=== PATIENT | male | born 1970 | race Caucasian/White ===

== ENCOUNTER → 2018-07-26 08:35 | Outpatient (CLI) | payer OTHER, SELFPAY ==
[2018-07-26 09:08] LABS: Add Manual Diff / Slide Review NO; Basophils Percent Auto 0.7 % (0-2); Eosinophils Percent Auto 1.8 % (2-4); Hematocrit 48.2 % (41-53); Hemoglobin 16.6 g/dL (13.5-17.5); Lymphocytes Percent Auto 27.8 % (25-40); Mean Corpuscular HGB Conc 34.5 % (30-36); Mean Corpuscular Hemoglobin 30.8 PG (26-34); Mean Corpuscular Volume 89.4 fL (80-100); Monocytes Percent Auto 7.7 % (3-14); Neutrophils Absolute Auto 4400 /uL (3000-5900); Platelet Count 212 X10^3/uL (150-400); Red Cell Distribution Width 13.1 % (11.6-14.8)
[2018-07-26 09:24] LABS: Alanine Aminotransferase 45 IU/L (21-72); Albumin 4.3 g/dL (3.5-5.0); Albumin Globulin Ratio 1.8 (1.0-2.8); Alkaline Phosphatase 52 U/L (38-126); Aspartate Aminotransferase 27 IU/L (17-59); Bilirubin Total 0.7 mg/dL (0.2-1.3); Blood Urea Nitrogen 15 mg/dL (9-20); Calcium 9.3 mg/dL (8.4-10.2); Carbon Dioxide 29 mmol/L (22-32); Chloride 105 mmol/L (98-107); Cholesterol 186 mg/dL (140-199); Estimated Glomerular Filt Rate > 60.0 mL/min (>60); Globulin 2.4 g/dL (1.7-4.1); Glucose 112 mg/dL (70-100); HDL Cholesterol 43 mg/dL (40-60); HEMOLYSIS < 15 (0-50); LDL Cholesterol Calculated 103 mg/dL (<100); Sodium 144 mmol/L (137-145); Total Protein 6.7 g/dL (6.3-8.2); Triglycerides 198 mg/dL (35-150)
[2018-07-26 12:47] LABS: Creatinine Urine Random 132.4 mg/dL
[2018-07-26 12:54] LABS: Microalbumi Creatinin Ratio Ur 4.5 ug/mg CR (<30); Microalbumin Urine Random < 0.6 mg/dL (0-1.6)
== END ==
PROVIDERS: PCP Family Medicine; Visit Provider Family Medicine
DX: I10 Essential (primary) hypertension (principal); E66.9 Obesity, unspecified; I47.1 Supraventricular tachycardia
CPT/HCPCS: 36415; 80053; 80061; 82043; 82570; 85025

== ENCOUNTER 2019-03-03 07:48 | Day surgery (SDC) | payer OTHER, SELFPAY ==
--- NOTE | 2019-03-03 | PATH_ITS ---
[facility] Accession Number: [id number] . 01 Material submitted: . PART A: body - POLYP @75 CM PART B: body - POLYP @20 CM . 02 Diagnosis: A. Colon at 75 cm, Polyp: Tubular adenoma. . B. Colon at 20 cm, Polyp: Hyperplastic polyp. MRV/03/04/2019 . 02 Electronically signed: . Scot Wilder MD, PhD, Pathologist NPI- [id number] . 01 Gross description: . (A) Received in formalin, labeled polyp @75, are multiple fragments of tracy-rogers tissue (1.8 x 0.2 x 0.1 cm in aggregate). Filtered and entirely submitted in cassette A1. (B) Received in formalin, labeled polyp @20 cm, are multiple fragments of tracy-rogers tissue (1.0 x 0.5 x 0.1 cm in aggregate). Filtered and entirely submitted in cassette B1. ([id number]) /[facility] . 02 Pathologist provided ICD-10: D12.6, K63.5 . 02 CPT . 256773, [id number] Performed at: 01 [facility] [address], [place], [place] [id number] MD Elton Awan MD Phone: [phone] Performed at: 02 [facility] [address] [place], [place] [id number] MD Crissy Rosales MD Phone: [phone]
[2019-03-03 08:11] VITALS: BMI 35.6
[2019-03-03 08:14] VITALS: BP 140/88; PULSE 98; RESP 18; TEMP 36.4; O2SAT 97
[2019-03-03] MEDS: SODIUM CHLORIDE 0.9% 1,000 ML 200 ML IV (08:22)
--- NOTE | 2019-03-03 09:34 | PM.HP.1 ---
History of Present Illness Date Patient Seen: 03/03/19 Time Patient Seen: 09:34 Chief complaint: [id number] Narrative: Patient is a gentleman whose turned 49 he is here for screening colonoscopy. This is his 1st exam. No family history. Patient History Medical History Essential hypertension (Chronic) SVT (supraventricular tachycardia) (Chronic) Surgical History S/P wisdom tooth extraction (Acute) Family History Father Diabetes mellitus Mother Diabetes mellitus Social History marital status: household members: spouse occupational status: employed ([employer] for [employer]) Smoking Status: Current every day smoker (20 year smoker 1/2 ppd) alcohol intake: current (rare) substance use type: does not use Family & Social History Family History Father Diabetes mellitus Mother Diabetes mellitus Social History: household members spouse Tobacco & Substance use: Smoking Status Current every day smoker alcohol intake current Meds Home Medications Medication Instructions Recorded Confirmed Type cholecalciferol (vitamin D3) 5,000 5,000 unit PO DAILY 02/03/18 03/03/19 History unit capsule irbesartan 300 1 tab PO DAILY #90 tab 09/19/18 03/03/19 Rx mg-hydrochlorothiazide 12.5 mg tablet metoprolol succinate ER 25 mg 12.5 mg PO DAILY tab 11/26/18 03/03/19 History tablet,extended release 24 hr metoprolol tartrate 25 mg tablet 25 mg PO DAILY PRN #60 tab 11/26/18 03/03/19 Rx Allergies Allergy/AdvReac Type Severity Reaction Status Date / Time azithromycin [From Zithromax] Allergy Intermediate Rash Verified 03/03/19 08:18 doxycycline Allergy Intermediate Rash Verified 03/03/19 08:18 Penicillins Allergy Intermediate Rash Verified 03/03/19 08:18 Review of Systems Review of Systems All systems reviewed & are unremarkable except as noted in HPI and below Exam Vital Signs (past 8 hours): - 03/03/19 08:14 Temperature 97.5 F L Pulse Rate 98 H Respiratory Rate 18 Blood Pressure 140/88 Pulse Oximetry 97 Oxygen Delivery Method Room Air Narrative Exam Narrative: Pleasant cooperative patient no apparent distress. Lungs are clear to auscultation. No rales or rhonchi. Heart regular rate and rhythm no murmur gallop. Abdomen is soft nontender without mass. No obvious hernias. Patient is alert and oriented x3. Assessment & Plan Assessment & Plan narrative: The patient for a screening colonoscopy. I have discussed the procedure with them. Risks of bleeding, perforation which would necessitate major operation, failure to find remove all lesions, the potential tattoo were all discussed. All questions were answered. They wished to proceed.
--- NOTE | 2019-03-03 09:35 | PM.PREOP ---
Pre-operative Note Interval Note History & Physical reviewed/Exam performed by Physician: Yes Changes to H&P: No ASA Class (for procedural sedation): II
--- NOTE | 2019-03-03 09:55 | SUR.OPER ---
used alligator biopsy [facility], [id number]
[2019-03-03] MEDS: MIDAZOLAM 5 MG/5 ML VIAL IV (10:01)
[2019-03-03] MEDS: fentaNYL 250 MCG/5 ML INJ IV (10:01)
--- NOTE | 2019-03-03 10:08 | PM.OP.ENDO ---
Operative Date/Time/Diagnoses Date of procedure: 03/03/19 Time of procedure: 10:08 Pre-op diagnosis: Screening exam. This is 1st colonoscopy. Post-op diagnosis: same (Two small polyps. Castanon colonic diverticulosis.) Procedure & Clinicians Study performed: Colonoscopy with cold biopsy Same procedure as scheduled: Yes Indications: Screening Surgeon: Dalton Johns Procedure Notes SCOAP/Timeout: Performed Procedure in detail: The patient was placed in the left lateral decubitus position and underwent IV sedation directed by the surgeon consisting of fentanyl and Versed. Digital exam was remarkable vein increased sphincter tone. I really could not feel his prostate well due to his body habitus.. The scope was inserted in I retroflexed at this point. The anus had a normal appearance. The scope was then advanced through the rectum into the sigmoid, descending, transverse, and ascending colon. I noted diverticulosis scattered but few in number throughout the colon.. The cecum was reached identified by the ileocecal valve and the appendiceal opening. The scope was gradually brought out. Polyps were found at 75 cm and 20 cm from the anal verge. These were biopsied and repeatedly and appeared to be completely removed.. The scope was removed and the patient tolerated the procedure well. The prep was very good. Scope withdrawal time: 24 minutes Sedation minutes: 28 Findings: diverticulosis and polyp Specimen(s): other (Polyp) Complications: none Recommendations: Colonscopy in 5 years Follow up: as needed Disposition: PACU
[2019-03-03 10:11] VITALS: BP 124/84; PULSE 91; RESP 13; TEMP 36.6; O2SAT 97
[2019-03-03 10:21] VITALS: BP 110/73; PULSE 87; RESP 12; TEMP 36.3; O2SAT 97
== END 2019-03-03 10:37 | disposition home or self-care (01) ==
PROVIDERS: PCP Family Medicine; Visit Provider Specialist
PROC: 0DJD8ZZ Inspection of Lower Intestinal Tract, Via Natural or Artificial Opening Endoscopic (ICD-10-PCS; CPT 45378; principal; 2019-03-03 08:45)
DX: Z12.11 Encounter for screening for malignant neoplasm of colon (principal); K57.30 Diverticulosis of large intestine without perforation or abscess without bleeding; D12.6 Benign neoplasm of colon, unspecified
CPT/HCPCS: 45380; 99152; J2250; J3010

== ENCOUNTER 2019-10-01 06:02 | Emergency (ER) | payer OTHER, SELFPAY ==
[2019-10-01] VITALS (13 sets, daily range): BP systolic 124–150; BP diastolic 29–84; PULSE 84–170; RESP 13–25; TEMP 36.8; O2SAT 94–97; BMI 36.6
--- NOTE | 2019-10-01 06:23 | ED_ITS ---
HPI - Nausea/Vomiting/Diarrhea <Ryan Raúl, DO - Last Filed: 10/01/19 23:31> General Chief complaint: Nausea/Vomiting/Diarrhea Stated complaint: DIARRHEA VOMITING STATES IN SVT Time Seen by Provider: 10/01/19 06:02 Source: patient Mode of arrival: Ambulatory Limitations: no limitations History of Present Illness HPI Narrative: 49-year-old male nonsmoker with history of SVT presents to the emergency department this morning with a chief complaint of rapid heart rate and palpitations since last night. He does have a history of SVT and takes metoprolol daily for this. He has never been cardioverted and has never had adenosine. Additionally he states he has had nausea vomiting and multiple episodes of diarrhea since last night. He denies any sick contacts, use of antibiotics, exposure to bad food or international travel. He is not dizzy, weak or lightheaded. He denies chest pain or shortness of breath. He has had no fever chills and denies any runny nose, sore throat or cough. He did try vagal maneuvers at home and was unsuccessful MD complaint: nausea, vomiting and diarrhea Onset (ago): hour(s) Description of Vomiting: food contents Description of Diarrhea: watery Associated Abdominal Pain: No Associated symptoms: nausea/vomiting and other Related Data Home Medications Medication Instructions Recorded Confirmed cholecalciferol (vitamin D3) 125 5,000 unit PO DAILY 02/03/18 06/29/19 mcg (5,000 unit) capsule metoprolol succinate 25 mg 12.5 mg PO DAILY tab 11/26/18 06/29/19 tablet,extended release 24 hr Previous Rx's Medication Instructions Recorded metoprolol tartrate 25 mg tablet 25 mg PO DAILY PRN #60 tab 06/29/19 irbesartan 300 1 tab PO DAILY #90 tab 09/16/19 mg-hydrochlorothiazide 12.5 mg tablet loperamide 2 mg PO Q2-4H PRN #14 cap 10/01/19 ondansetron 4 mg PO TID-QID PRN #10 tab 10/01/19 ondansetron HCl [Zofran] 4 mg PO Q6H PRN #10 tab 10/01/19 Allergies Allergy/AdvReac Type Severity Reaction Status Date / Time azithromycin [From Zithromax] Allergy Intermediate Rash Verified 10/01/19 07:41 doxycycline Allergy Intermediate Rash Verified 10/01/19 07:41 Penicillins Allergy Intermediate Rash Verified 10/01/19 07:41 Review of Systems <Ryan Olsen DO - Last Filed: 10/01/19 23:31> Constitutional Constitutional: Denies chills, Denies fatigue, Denies fever(s), Denies frequent falls, Denies lethargy and Denies weakness Eyes Eyes: Denies change in vision, Denies eye discharge, Denies irritation and Denies loss of vision ENT Ears, Nose, Mouth, and Throat: Denies change in voice, Denies dizziness, Denies neck pain, Denies sore throat and Denies throat swelling Cardiovascular Cardiovascular: Denies chest pain, Reports irregular heart rhythm, Denies lightheadedness, Reports palpitations, Denies dyspnea, Denies dyspnea on exertion and Denies orthopnea Respiratory Respiratory: Denies cough, Denies dyspnea, Denies dyspnea on exertion and Denies wheezing Gastrointestinal Gastrointestinal: Denies abdominal pain, Denies change in bowel habits, Denies diarrhea, Denies nausea and Denies vomiting Genitourinary Genitourinary: Denies hematuria, Denies flank pain, Denies urinary incontinence and Denies urinary urgency Musculoskeletal Musculoskeletal: Denies back pain, Denies muscle weakness, Denies neck pain, Denies numbness and Denies tingling Integumentary/Breasts Skin/Breast: Denies pruritus, Denies erythema, Denies rash and Denies wounds Neurologic Neurologic: Denies behavioral changes, Denies confusion, Denies dizziness, Denies frequent falls, Denies loss of vision, Denies numbness, Denies tingling and Denies weakness Psychiatric Psychiatric: Denies anxiety, Denies behavioral changes, Denies confusion, Denies depression, Denies homicidal ideation and Denies suicidal ideation Endocrine Endocrine: Denies fatigue, Denies flushing and Reports palpitations Hematologic/Lymphatic Hematologic/Lymphatic: Denies easy bruising Allergic/Immunologic Allergic/Immunologic: Denies urticaria, Denies throat swelling and Denies whee zing Patient History <Ryan Olsen DO - Last Filed: 10/01/19 23:31> Medical History Essential hypertension (Chronic) SVT (supraventricular tachycardia) (Chronic) Surgical History S/P wisdom tooth extraction (Acute) Family History Father Diabetes mellitus Mother Diabetes mellitus Social History marital status: household members: spouse occupational status: employed ([employer] for [employer]) Smoking Status: Former smoker (20 year smoker 1/2 ppd, quit 2019!!) alcohol intake: current (rare) substance use type: does not use Smoking Status: Former smoker (20 year smoker 1/2 ppd, quit 2019!!) Exam <Ryan Olsen DO - Last Filed: 10/01/19 23:31> Narrative Exam Narrative: GENERAL: [49] year old patient appears stated age. Obese, well- developed patient, in mild distress. HEAD: Atraumatic. Normocephalic. EYES: Pupils equal round and reactive. Extraocular motions intact. No scleral icterus. No injection or drainage. ENT: Nose without bleeding, purulent drainage. Throat without erythema, tonsillar hypertrophy or exudate. Airway patent. NECK: Trachea midline. Non tender CARDIOVASCULAR: Tachycardic and regular rhythm without murmurs, gallops, or rubs. RESPIRATORY: Clear to auscultation. Breath sounds equal bilaterally. No wheezes, rales, or rhonchi. GASTROINTESTINAL: Abdomen soft, non-tender, nondistended. EXTREMITIES: No edema or joint tenderness. BACK: Nontender without deformity or crepitance. No flank tenderness. NEURO: AOx3. SKIN: No rash or erythema of visible areas Initial Vital Signs Initial Vital Signs: Vital Signs Temperature 98.2 F 10/01/19 06:21 Pulse Rate 170 H 10/01/19 06:21 Respiratory Rate 16 10/01/19 06:21 Blood Pressure 127/29 L 10/01/19 06:21 Pulse Oximetry 97 10/01/19 06:21 <Pramod Leiva MD - Last Filed: 10/02/19 07:25> Initial Vital Signs Initial Vital Signs: Vital Signs Temperature 98.2 F 10/01/19 06:21 Pulse Rate 170 H 10/01/19 06:21 Respiratory Rate 16 10/01/19 06:21 Blood Pressure 127/29 L 10/01/19 06:21 Pulse Oximetry 97 10/01/19 06:21 Course <Ryan Olsen DO - Last Filed: 10/01/19 23:31> Course Course Narrative: Attempted to perform modified Valsalva maneuver and patient did have a brief conversion from SVT to normal sinus rhythm in the 70s but quickly returned. We placed an IV and patient stated he had to use the restroom. He was able to produce a liquidy stool which has been sent for culture. Upon return to the room he is in a sinus tachycardia at 105-110 and reports some improvement in symptoms Orders Ordered: Discontinued Medications Adenosine (Adenocard) 6 mg IV NOW ONE Stop: 10/01/19 06:22 Last Admin: 10/01/19 10:35 Dose: Not Given Documented by: MEISENB Diltiazem HCl (Cardizem) 10 mg IV NOW ONE Stop: 10/01/19 09:43 Last Admin: 10/01/19 10:35 Dose: 10 mg Documented by: MEISENB Sodium Chloride (Normal Saline 0.9%) 1,000 mls @ 1,000 mls/hr IV BOLUS ONE Stop: 10/01/19 07:25 Last Infusion: 10/01/19 08:46 Dose: 0 mls/hr Documented by: Admin: 10/01/19 06:25 Dose: 1,000 mls/hr Documented by: MMCFARL Sodium Chloride (Normal Saline 0.9%) 1,000 mls @ 1,000 mls/hr IV BOLUS ONE Stop: 10/01/19 07:44 Last Admin: 10/01/19 07:47 Dose: 1,000 mls/hr Documented by: MEISENB Sodium Chloride (Normal Saline 0.9%) 1,000 mls @ 150 mls/hr IV CONT ARLENE Last Admin: 10/01/19 10:35 Dose: Not Given Documented by: MEISENB Metoprolol Succinate (Toprol Xl) 25 mg PO NOW ONE Stop: 10/01/19 10:06 Last Admin: 10/01/19 10:34 Dose: 25 mg Documented by: MEISENB Vital Signs Vital signs: Vital Signs - 8 hr 10/01/19 06:21 10/01/19 06:38 10/01/19 06:59 Temperature 98.2 F Pulse Rate 170 H 106 H 101 H Pulse Rate [Orthostatic Lying] Pulse Rate [Orthostatic Sitting] Pulse Rate [Orthostatic Standing] Respiratory Rate 16 21 24 Blood Pressure 127/29 L Blood Pressure [Orthostatic Lying] Blood Pressure [Orthostatic Sitting] Blood Pressure [Orthostatic Standing] Blood Pressure [Right Arm] 129/80 135/77 Pulse Oximetry 97 94 95 10/01/19 07:39 10/01/19 08:00 10/01/19 08:30 Temperature Pulse Rate 98 H 88 89 Pulse Rate [Orthostatic Lying] Pulse Rate [Orthostatic Sitting] Pulse Rate [Orthostatic Standing] Respiratory Rate 16 16 16 Blood Pressure Blood Pressure [Orthostatic Lying] Blood Pressure [Orthostatic Sitting] Blood Pressure [Orthostatic Standing] Blood Pressure [Right Arm] 128/79 126/70 127/74 Pulse Oximetry 96 97 97 10/01/19 08:54 10/01/19 08:55 10/01/19 09:00 Temperature Pulse Rate 86 88 Pulse Rate [Orthostatic Lying] 86 Pulse Rate [Orthostatic Sitting] 94 H Pulse Rate [Orthostatic Standing] 106 H Respiratory Rate 16 16 Blood Pressure Blood Pressure [Orthostatic Lying] 127/64 Blood Pressure [Orthostatic Sitting] 127/80 Blood Pressure [Orthostatic Standing] 124/77 Blood Pressure [Right Arm] 131/68 127/64 Pulse Oximetry 96 97 10/01/19 09:30 10/01/19 09:33 Temperature Pulse Rate 84 132 H Pulse Rate [Orthostatic Lying] Pulse Rate [Orthostatic Sitting] Pulse Rate [Orthostatic Standing] Respiratory Rate 16 13 Blood Pressure Blood Pressure [Orthostatic Lying] Blood Pressure [Orthostatic Sitting] Blood Pressure [Orthostatic Standing] Blood Pressure [Right Arm] 147/84 H 147/84 H Pulse Oximetry 96 97 <Pramod Leiva MD - Last Filed: 10/02/19 07:25> Course Course Narrative: 0814: TRANSFER OF CARE ADDENDUM: Report was received from Dr. Olsen. The patient's stool analysis was negative. His white blood count was 1 4.0, hemoglobin 18.9, hematocrit 53.9, which questionably may be secondary to hemoconcentration secondary to being dehydrated or polycythemia. The patient admits to smoking cigarettes. The patient states that he developed diarrhea last night around 9:00 a.m. and that it was profuse multiple bowel movements. He did not notice any blood or melena in it. The patient started vomiting and became diaphoretic at which time he came into the emergency department to be evaluated. At 6:13 a.m. the patient's heart rate was 101 blood pressure 135/77 oxygen saturation 95% FiO2 21%. At the present time his heart rate is 85 blood pressure is 125/70. His EKG obtained on October 01 at 06:1 3:15 a.m. revealed a ventricular rate of 134. I do not really see any P-waves in the EKG and it does look like it could very well be atrial fibrillation with a rapid ventricular rate. QTC is 392 milliseconds which is normal axis is normal. I will repeat his EKG at this time because on the monitor his heart rate looks regular. We will also check orthostatic vital signs an ambulate the patient and see how he does. The patient would like to go home. At this time his heart is regular rate and rhythm without a murmur distant. Lungs are clear and symmetrical. Abdomen is soft and nontender. The patient is awake alert and oriented answering questions appropriately. 0905 laying down the patient's heart rate is 86 with a blood pressure of 127/74. Sitting the patient's heart rate is 94 with blood pressure of 127/80. Standing the patient's blood pressure is 124 over of 77 with a heart rate of 106. The patient states that he feels 200% better. His EKG obtained on October 01 at 08:3 2:06 a.m. reveals a normal sinus rhythm with a RI interval of 181 QRS is slightly prolonged at 107 milliseconds. QTC is normal at 418 milliseconds. [place] is normal at 7. The patient has a stroke very small R-wave in III otherwise it looks like a QS confirmation. T-waves are upright. There are no appreciable inverted T-waves or Q-waves appreciated. ST segments are nonspecific. The plan is to discharge the patient home as soon as his IV is complete. He was advised to drink 3 L of fluid per day and to rest today and take his medications as prescribed. He will be given Zofran for nausea and vomiting and loperamide for his diarrhea. He was advised to follow-up with his primary care physician in 2 4-48 hours if not improved. If he develops rapid heart rate dizziness passing out increased shortness of breath or chest pain he needs to return to the emergency department. 0941 the patient was in the process of being discharged when he redeveloped SVT with his heart rate going up to 155. Repeat EKG reveals that he has atrial fibrillation with rapid ventricular rate of 144. His QRS who is prolonged at 112 milliseconds. QTC is normal at 401 milliseconds axis is normal. The patient has a QS wave in lead III and AVF without inverted T-waves. There is no acute diagnostic ST segment changes. I will discuss the patient with his primary care physician in believe the patient will be admitted for paroxysmal atrial fibrillation. 1000 I discussed the patient with Dr. Corona for Dr. Carr, [facility] who states that the patient can go home. He is to increase his metoprolol to 25 mg per day and take aspirin and call and make an office appointment. His Luisito score is 1 and does not need to be anticoagulated. The patient is back in normal sinus rhythm with a ventricular rate of 85. Orders Ordered: Discontinued Medications Adenosine (Adenocard) 6 mg IV NOW ONE Stop: 10/01/19 06:22 Last Admin: 10/01/19 10:35 Dose: Not Given Documented by: MEISENB Diltiazem HCl (Cardizem) 10 mg IV NOW ONE Stop: 10/01/19 09:43 Last Admin: 10/01/19 10:35 Dose: 10 mg Documented by: MEISENB Sodium Chloride (Normal Saline 0.9%) 1,000 mls @ 1,000 mls/hr IV BOLUS ONE Stop: 10/01/19 07:25 Last Infusion: 10/01/19 08:46 Dose: 0 mls/hr Documented by: Admin: 10/01/19 06:25 Dose: 1,000 mls/hr Documented by: MMCFARL Sodium Chloride (Normal Saline 0.9%) 1,000 mls @ 1,000 mls/hr IV BOLUS ONE Stop: 10/01/19 07:44 Last Admin: 10/01/19 07:47 Dose: 1,000 mls/hr Documented by: MEISENB Sodium Chloride (Normal Saline 0.9%) 1,000 mls @ 150 mls/hr IV CONT ARLENE Last Admin: 10/01/19 10:35 Dose: Not Given Documented by: MEISENB Metoprolol Succinate (Toprol Xl) 25 mg PO NOW ONE Stop: 10/01/19 10:06 Last Admin: 10/01/19 10:34 Dose: 25 mg Documented by: MEISENRose Marie Vital Signs Vital signs: Vital Signs - 8 hr 10/01/19 06:21 10/01/19 06:38 10/01/19 06:59 Temperature 98.2 F Pulse Rate 170 H 106 H 101 H Pulse Rate [Orthostatic Lying] Pulse Rate [Orthostatic Sitting] Pulse Rate [Orthostatic Standing] Respiratory Rate 16 21 24 Blood Pressure 127/29 L Blood Pressure [Orthostatic Lying] Blood Pressure [Orthostatic Sitting] Blood Pressure [Orthostatic Standing] Blood Pressure [Right Arm] 129/80 135/77 Pulse Oximetry 97 94 95 10/01/19 07:39 10/01/19 08:00 10/01/19 08:30 Temperature Pulse Rate 98 H 88 89 Pulse Rate [Orthostatic Lying] Pulse Rate [Orthostatic Sitting] Pulse Rate [Orthostatic Standing] Respiratory Rate 16 16 16 Blood Pressure Blood Pressure [Orthostatic Lying] Blood Pressure [Orthostatic Sitting] Blood Pressure [Orthostatic Standing] Blood Pressure [Right Arm] 128/79 126/70 127/74 Pulse Oximetry 96 97 97 10/01/19 08:54 10/01/19 08:55 10/01/19 09:00 Temperature Pulse Rate 86 88 Pulse Rate [Orthostatic Lying] 86 Pulse Rate [Orthostatic Sitting] 94 H Pulse Rate [Orthostatic Standing] 106 H Respiratory Rate 16 16 Blood Pressure Blood Pressure [Orthostatic Lying] 127/64 Blood Pressure [Orthostatic Sitting] 127/80 Blood Pressure [Orthostatic Standing] 124/77 Blood Pressure [Right Arm] 131/68 127/64 Pulse Oximetry 96 97 10/01/19 09:30 10/01/19 09:33 Temperature Pulse Rate 84 132 H Pulse Rate [Orthostatic Lying] Pulse Rate [Orthostatic Sitting] Pulse Rate [Orthostatic Standing] Respiratory Rate 16 13 Blood Pressure Blood Pressure [Orthostatic Lying] Blood Pressure [Orthostatic Sitting] Blood Pressure [Orthostatic Standing] Blood Pressure [Right Arm] 147/84 H 147/84 H Pulse Oximetry 96 97 MDM - Nausea/Vomiting/Diarrhea <Ryan Olsen DO - Last Filed: 10/01/19 23:31> Lab Data Result diagrams: 10/01/19 06:10 10/01/19 06:10 Labs: Lab Results 10/01/19 10/01/19 10/01/19 Range/Units 06:10 06:10 06:30 WBC 14.0 H (4.5-11.0) X10^3/uL RBC 6.07 H (4.5-5.9) X10^6/uL Hgb 18.9 H (13.5-17.5) g/dL Hct 53.9 H (41-53) % MCV 88.8 (80-100) fL MCH 31.2 (26-34) PG MCHC 35.1 (30-36) % RDW 13.2 (11.6-14.8) % Plt Count 241 (150-400) X10^3/uL Neut % (Auto) 85.6 H (50-75) % Lymph % (Auto) 7.2 L (25-40) % [place] % (Auto) 5.2 (3-14) % Eos % (Auto) 1.4 L (2-4) % Baso % (Auto) 0.6 (0-2) % Neut # (Auto) 31542 H (6188-6622) /uL Lymph # (Auto) 1000 L (2476-9276) /uL [place] # (Auto) 700 (0-900) /uL Eos # (Auto) 200 (0-450) /uL Baso # (Auto) 100 (0-100) /uL Sodium 142 (137-145) mmol/L Potassium 4.0 (3.4-5.1) mmol/L Chloride 108 H (98-107) mmol/L Carbon Dioxide 21 L (22-32) mmol/L BUN 21 H (9-20) mg/dL Creatinine 1.00 (0.66-1.25) mg/dL Estimated GFR > 60.0 (>60) mL/min BUN/Creatinine Ratio 21.0 (6-22) Glucose 153 H (70-100) mg/dL Calcium 9.9 (8.4-10.2) mg/dL Urine RBC (0-5/HPF) Urine WBC (0-5/HPF) Amorphous Sediment Urine Bacteria (None) Urine Mucus (Negative) Ur Culture Indicated? Stl C. cayetanensis PCR Not detected (Not Detect) Stool Rotavirus (PCR) Not detected (Not Detect) Stool Adenovirus (PCR) Not detected (Not Detect) Stool Astrovirus (PCR) Not detected (Not Detect) Stool Cryptosporidium PCR Not detected (Not Detect) Stl E.coli Shiga Tox PCR Not detected (Not Detect) St Sh/Enteroin Ecoli PCR Not detected (Not Detect) Stool E coli O157 PCR Not detected (Not Detect) Stl Enterotoxigenic E PCR Not detected (Not Detect) Stool EPEC (PCR) Not detected (Not Detect) Stl E. histolytica PCR Not detected (Not Detect) Stool Giardia Lamblia PCR Not detected (Not Detect) Stool Sapovirus (PCR) Not detected (Not Detect) Stl P. shigelloides PCR Not detected (Not Detect) St Y.enterocolitica PCR Not detected (Not Detect) Stool Vibrio (PCR) Not detected (Not Detect) Stl Vibrio cholerae PCR Not detected (Not Detect) Stl Enteroaggr Ecoli PCR Not detected (Not Detect) Stl Norovirus GI/GII PCR Not detected (Not Detect) Campylobacter (PCR) Not detected (Not Detect) C. difficile Tox (PCR) Not detected (Not Detect) Salmonella (PCR) Not detected (Not Detect) 10/01/19 Range/Units 07:43 WBC (4.5-11.0) X10^3/uL RBC (4.5-5.9) X10^6/uL Hgb (13.5-17.5) g/dL Hct (41-53) % MCV (80-100) fL MCH (26-34) PG MCHC (30-36) % RDW (11.6-14.8) % Plt Count (150-400) X10^3/uL Neut % (Auto) (50-75) % Lymph % (Auto) (25-40) % [place] % (Auto) (3-14) % Eos % (Auto) (2-4) % Baso % (Auto) (0-2) % Neut # (Auto) (9518-9827) /uL Lymph # (Auto) (2437-5528) /uL [place] # (Auto) (0-900) /uL Eos # (Auto) (0-450) /uL Baso # (Auto) (0-100) /uL Sodium (137-145) mmol/L Potassium (3.4-5.1) mmol/L Chloride (98-107) mmol/L Carbon Dioxide (22-32) mmol/L BUN (9-20) mg/dL Creatinine (0.66-1.25) mg/dL Estimated GFR (>60) mL/min BUN/Creatinine Ratio (6-22) Glucose (70-100) mg/dL Calcium (8.4-10.2) mg/dL Urine RBC None seen (0-5/HPF) Urine WBC 1-5/hpf (0-5/HPF) Amorphous Sediment 1+ Urine Bacteria Occasional (0-1) (None) Urine Mucus 3+ H (Negative) Ur Culture Indicated? Specimen cultured Stl C. cayetanensis PCR (Not Detect) Stool Rotavirus (PCR) (Not Detect) Stool Adenovirus (PCR) (Not Detect) Stool Astrovirus (PCR) (Not Detect) Stool Cryptosporidium PCR (Not Detect) Stl E.coli Shiga Tox PCR (Not Detect) St Sh/Enteroin Ecoli PCR (Not Detect) Stool E coli O157 PCR (Not Detect) Stl Enterotoxigenic E PCR (Not Detect) Stool EPEC (PCR) (Not Detect) Stl E. histolytica PCR (Not Detect) Stool Giardia Lamblia PCR (Not Detect) Stool Sapovirus (PCR) (Not Detect) Stl P. shigelloides PCR (Not Detect) St Y.enterocolitica PCR (Not Detect) Stool Vibrio (PCR) (Not Detect) Stl Vibrio cholerae PCR (Not Detect) Stl Enteroaggr Ecoli PCR (Not Detect) Stl Norovirus GI/GII PCR (Not Detect) Campylobacter (PCR) (Not Detect) C. difficile Tox (PCR) (Not Detect) Salmonella (PCR) (Not Detect) Urine Dip Bedside Urine Glucose Negative Bedside Urine Bilirubin + 1 Bedside Urine Ketone +/- 5 Urine Specific [place] 1.025 Bedside Urine Occult Blood - Negative Bedside Urine pH 6.0 Bedside Urine Protein + 30 Bedside Urine Urobilinogen - Negative Bedside Urine Nitrite - Negative Bedside Urine Leukocytes +/- 15 Esterase <Pramod Leiva MD - Last Filed: 10/02/19 07:25> Medical Records Attestation: I reviewed the patient's medical records. Lab Data Attestation: I reviewed the patient's lab results. Labs: Lab Results 10/01/19 10/01/19 10/01/19 Range/Units 06:10 06:10 06:30 WBC 14.0 H (4.5-11.0) X10^3/uL RBC 6.07 H (4.5-5.9) X10^6/uL Hgb 18.9 H (13.5-17.5) g/dL Hct 53.9 H (41-53) % MCV 88.8 (80-100) fL MCH 31.2 (26-34) PG MCHC 35.1 (30-36) % RDW 13.2 (11.6-14.8) % Plt Count 241 (150-400) X10^3/uL Neut % (Auto) 85.6 H (50-75) % Lymph % (Auto) 7.2 L (25-40) % [place] % (Auto) 5.2 (3-14) % Eos % (Auto) 1.4 L (2-4) % Baso % (Auto) 0.6 (0-2) % Neut # (Auto) 68940 H (2384-1634) /uL Lymph # (Auto) 1000 L (1241-7607) /uL [place] # (Auto) 700 (0-900) /uL Eos # (Auto) 200 (0-450) /uL Baso # (Auto) 100 (0-100) /uL Sodium 142 (137-145) mmol/L Potassium 4.0 (3.4-5.1) mmol/L Chloride 108 H (98-107) mmol/L Carbon Dioxide 21 L (22-32) mmol/L BUN 21 H (9-20) mg/dL Creatinine 1.00 (0.66-1.25) mg/dL Estimated GFR > 60.0 (>60) mL/min BUN/Creatinine Ratio 21.0 (6-22) Glucose 153 H (70-100) mg/dL Calcium 9.9 (8.4-10.2) mg/dL Urine RBC (0-5/HPF) Urine WBC (0-5/HPF) Amorphous Sediment Urine Bacteria (None) Urine Mucus (Negative) Ur Culture Indicated? Stl C. cayetanensis PCR Not detected (Not Detect) Stool Rotavirus (PCR) Not detected (Not Detect) Stool Adenovirus (PCR) Not detected (Not Detect) Stool Astrovirus (PCR) Not detected (Not Detect) Stool Cryptosporidium PCR Not detected (Not Detect) Stl E.coli Shiga Tox PCR Not detected (Not Detect) St Sh/Enteroin Ecoli PCR Not detected (Not Detect) Stool E coli O157 PCR Not detected (Not Detect) Stl Enterotoxigenic E PCR Not detected (Not Detect) Stool EPEC (PCR) Not detected (Not Detect) Stl E. histolytica PCR Not detected (Not Detect) Stool Giardia Lamblia PCR Not detected (Not Detect) Stool Sapovirus (PCR) Not detected (Not Detect) Stl P. shigelloides PCR Not detected (Not Detect) St Y.enterocolitica PCR Not detected (Not Detect) Stool Vibrio (PCR) Not detected (Not Detect) Stl Vibrio cholerae PCR Not detected (Not Detect) Stl Enteroaggr Ecoli PCR Not detected (Not Detect) Stl Norovirus GI/GII PCR Not detected (Not Detect) Campylobacter (PCR) Not detected (Not Detect) C. difficile Tox (PCR) Not detected (Not Detect) Salmonella (PCR) Not detected (Not Detect) 10/01/19 Range/Units 07:43 WBC (4.5-11.0) X10^3/uL RBC (4.5-5.9) X10^6/uL Hgb (13.5-17.5) g/dL Hct (41-53) % MCV (80-100) fL MCH (26-34) PG MCHC (30-36) % RDW (11.6-14.8) % Plt Count (150-400) X10^3/uL Neut % (Auto) (50-75) % Lymph % (Auto) (25-40) % [place] % (Auto) (3-14) % Eos % (Auto) (2-4) % Baso % (Auto) (0-2) % Neut # (Auto) (8176-5963) /uL Lymph # (Auto) (5870-2991) /uL [place] # (Auto) (0-900) /uL Eos # (Auto) (0-450) /uL Baso # (Auto) (0-100) /uL Sodium (137-145) mmol/L Potassium (3.4-5.1) mmol/L Chloride (98-107) mmol/L Carbon Dioxide (22-32) mmol/L BUN (9-20) mg/dL Creatinine (0.66-1.25) mg/dL Estimated GFR (>60) mL/min BUN/Creatinine Ratio (6-22) Glucose (70-100) mg/dL Calcium (8.4-10.2) mg/dL Urine RBC None seen (0-5/HPF) Urine WBC 1-5/hpf (0-5/HPF) Amorphous Sediment 1+ Urine Bacteria Occasional (0-1) (None) Urine Mucus 3+ H (Negative) Ur Culture Indicated? Specimen cultured Stl C. cayetanensis PCR (Not Detect) Stool Rotavirus (PCR) (Not Detect) Stool Adenovirus (PCR) (Not Detect) Stool Astrovirus (PCR) (Not Detect) Stool Cryptosporidium PCR (Not Detect) Stl E.coli Shiga Tox PCR (Not Detect) St Sh/Enteroin Ecoli PCR (Not Detect) Stool E coli O157 PCR (Not Detect) Stl Enterotoxigenic E PCR (Not Detect) Stool EPEC (PCR) (Not Detect) Stl E. histolytica PCR (Not Detect) Stool Giardia Lamblia PCR (Not Detect) Stool Sapovirus (PCR) (Not Detect) Stl P. shigelloides PCR (Not Detect) St Y.enterocolitica PCR (Not Detect) Stool Vibrio (PCR) (Not Detect) Stl Vibrio cholerae PCR (Not Detect) Stl Enteroaggr Ecoli PCR (Not Detect) Stl Norovirus GI/GII PCR (Not Detect) Campylobacter (PCR) (Not Detect) C. difficile Tox (PCR) (Not Detect) Salmonella (PCR) (Not Detect) Urine Dip Bedside Urine Glucose Negative Bedside Urine Bilirubin + 1 Bedside Urine Ketone +/- 5 Urine Specific [place] 1.025 Bedside Urine Occult Blood - Negative Bedside Urine pH 6.0 Bedside Urine Protein + 30 Bedside Urine Urobilinogen - Negative Bedside Urine Nitrite - Negative Bedside Urine Leukocytes +/- 15 Esterase ECG Data Attestation: I personally reviewed and interpreted this ECG as follows: Interpretation: See Transfer of Care Addendum with EKG interpretation. Discharge Plan Departure Patient Disposition: Home Clinical Impression: Supraventricular tachycardia, Nausea, Vomiting, and Diarrhea, Dehydration, High mean corpuscular hemoglobin concentration (MCHC), Atrial fibrillation with rapid ventricular response Discharge Date/Time: 10/01/19 10:42 Instructions: DI for Dehydration -- Adult, DI for Paroxysmal Supraventricular T achycardia, DI for Vomiting -- Adult Activity Restrictions/Additional Instructions: *You have been diagnosed with [nausea, vomiting, diarrhea an SVT] *What to do: *Take medications as directed *Follow up with your primary care provider in 2-3 days, call for an appointment. Let them know you were seen in the Emergency Department and that we ask that you be seen in follow up *Return to ER if you should have any new, worsening or concerning symptoms Drink 2-3 L of fluid per day. Increase your metoprolol to 25 mg per day double the dose. Take were 325 mg of aspirin per day and call Dr. Menchaca's office and schedule a follow-up appointment with [facility]. Prescriptions: New ondansetron 4 mg tablet,disintegrating 4 mg PO TID-QID PRN (Reason: nausea and vomiting) Qty: 10 RF: 0 loperamide 2 mg capsule 2 mg PO Q2-4H PRN (Reason: loose stool) Qty: 14 RF: 0 ondansetron HCl [Zofran] 4 mg tablet 4 mg PO Q6H PRN (Reason: nausea and vomiting) Qty: 10 RF: 0 No Action metoprolol tartrate 25 mg tablet 25 mg PO DAILY PRN (Reason: SVT) Qty: 60 RF: 2 irbesartan-hydrochlorothiazide 300-12.5 mg tablet 1 tab PO DAILY Qty: 90 RF: 3 cholecalciferol (vitamin D3) 5,000 unit capsule 5,000 unit PO DAILY RF: 0 metoprolol succinate 25 mg tablet extended release 24 hr 12.5 mg PO DAILY RF: 0 Referrals: Yuki Howell DO [Primary Care Provider] -
[2019-10-01] MEDS: SODIUM CHLORIDE 0.9% 1,000 ML 1000 ML IV ×2 (06:25→07:47)
--- NOTE | 2019-10-01 06:36 | PC.NURSE ---
Pt ambulated to bathroom to provide stool sample, once back in bed, was a sinus tachy at a 115
[2019-10-01 06:37] LABS: Blood Urea Nitrogen 21 mg/dL (9-20); Calcium 9.9 mg/dL (8.4-10.2); Carbon Dioxide 21 mmol/L (22-32); Chloride 108 mmol/L (98-107); Estimated Glomerular Filt Rate > 60.0 mL/min (>60); Glucose 153 mg/dL (70-100); HEMOLYSIS < 15 (0-50); Sodium 142 mmol/L (137-145)
[2019-10-01 06:43] LABS: Add Manual Diff / Slide Review NO; Basophils Absolute Auto 100 /uL (0-100); Basophils Percent Auto 0.6 % (0-2); Eosinophils Absolute Auto 200 /uL (0-450); Eosinophils Percent Auto 1.4 % (2-4); Hematocrit 53.9 % (41-53); Hemoglobin 18.9 g/dL (13.5-17.5); Lymphocytes Absolute Auto 1000 /uL (1100-4500); Lymphocytes Percent Auto 7.2 % (25-40); Mean Corpuscular HGB Conc 35.1 % (30-36); Mean Corpuscular Hemoglobin 31.2 PG (26-34); Mean Corpuscular Volume 88.8 fL (80-100); Monocytes Absolute Auto 700 /uL (0-900); Monocytes Percent Auto 5.2 % (3-14); Neutrophils Absolute Auto 12000 /uL (1500-7000); Neutrophils Percent Auto 85.6 % (50-75); Platelet Count 241 X10^3/uL (150-400); Red Blood Cell Count 6.07 X10^6/uL (4.5-5.9); Red Cell Distribution Width 13.2 % (11.6-14.8)
--- NOTE | 2019-10-01 07:37 | PC.NURSE ---
hr 98 to 158- then down to 98-104 +palpitation, +shortness of breath on exertion. pt able to ambulate to bathroom, +diarrhea denies blood. voided dark yellow urine.
[2019-10-01 07:56] LABS: Adenovirus F 40/41 Not Detected (Not Detect); Astrovirus Not Detected (Not Detect); Campylobacter Not Detected (Not Detect); Clostridium difficile toxin AB Not Detected (Not Detect); Cryptosporidium Not Detected (Not Detect); Cyclospora cayetanensis Not Detected (Not Detect); Entamoeba histolytica Not Detected (Not Detect); Enteroaggregative E.coli Not Detected (Not Detect); Enteropathogenic E.coli Not Detected (Not Detect); Enterotoxigenic E.coli It/st Not Detected (Not Detect); Giardia lamblia Not Detected (Not Detect); Norovirus GI/GII Not Detected (Not Detect); Plesiomonsa shigelloides Not Detected (Not Detect); Rotavirus A Not Detected (Not Detect); Salmonella Not Detected (Not Detect); Sapovirus Not Detected (Not Detect); Shiga-like toxin-prod E.coli Not Detected (Not Detect); Shigella/Enteroinvasive E.coli Not Detected (Not Detect); Vibrio Not Detected (Not Detect); Vibrio cholerae Not Detected (Not Detect); Yersinia enterocolitica Not Detected (Not Detect)
[2019-10-01 08:01] LABS: RBC Urine None Seen (0-5/HPF)
[2019-10-01 08:17] LABS: Amorphous Sediment Urine 1+; Bacteria Urine Occasional (0-1); Culture Indicated Urine Specimen Cultured; Mucus Urine 3+ (Negative); WBC Urine 1-5/HPF (0-5/HPF)
--- NOTE | 2019-10-01 08:49 | PC.NURSE ---
with intermittent SVT
--- NOTE | 2019-10-01 09:43 | PC.NURSE ---
while discharging pt , recurrent svt 156, +nausea and abdominal cramping, skin warm dry pink pt convert self by bearing down (blowing into syringe) nsr 84, then svt 156 briefly, then sinus 84 stable bp 147/84
[2019-10-01] MEDS: METOPROLOL ER 25 MG TABLET PO (10:34)
[2019-10-01] MEDS: dilTIAZem 5 MG/ML SDV 10 MG IV (10:35)
== END 2019-10-01 10:42 | disposition home or self-care (01) ==
PROVIDERS: Emergency Medicine; Emergency Provider Emergency Medicine; PCP Family Medicine
DX: I47.1 Supraventricular tachycardia (principal); E86.0 Dehydration; R71.8 Other abnormality of red blood cells; R11.2 Nausea with vomiting, unspecified
CPT/HCPCS: 36415; 80048; 81003; 81015; 85025; 87086; 87507; 93005; 96361; 96374; 99284

== ENCOUNTER → 2020-03-21 09:02 | Outpatient (CLI) | payer OTHER, SELFPAY ==
[2020-03-21 10:21] LABS: Add Manual Diff / Slide Review NO; Basophils Absolute Auto 0 /uL (0-100); Basophils Percent Auto 0.8 % (0-2); Eosinophils Absolute Auto 300 /uL (0-450); Eosinophils Percent Auto 4.6 % (2-4); Hematocrit 45.8 % (41-53); Hemoglobin 15.7 g/dL (13.5-17.5); Lymphocytes Absolute Auto 1800 /uL (1100-4500); Mean Corpuscular HGB Conc 34.2 % (30-36); Mean Corpuscular Hemoglobin 30.6 PG (26-34); Mean Corpuscular Volume 89.5 fL (80-100); Monocytes Absolute Auto 400 /uL (0-900); Monocytes Percent Auto 6.7 % (3-14); Neutrophils Absolute Auto 3800 /uL (1500-7000); Neutrophils Percent Auto 59.9 % (50-75); Platelet Count 187 X10^3/uL (150-400); Red Blood Cell Count 5.12 X10^6/uL (4.5-5.9); White Blood Cell Count 6.3 X10^3/uL (4.5-11.0)
[2020-03-21 10:44] LABS: Alanine Aminotransferase 34 IU/L (<50); Albumin 4.4 g/dL (3.5-5.0); Albumin Globulin Ratio 1.8 (1.0-2.8); Alkaline Phosphatase 61 U/L (38-126); Aspartate Aminotransferase 26 IU/L (17-59); BUN Creatinine Ratio 16.3 (6-22); Bilirubin Total 0.8 mg/dL (0.2-1.3); Blood Urea Nitrogen 15 mg/dL (9-20); Calcium 9.6 mg/dL (8.4-10.2); Carbon Dioxide 29 mmol/L (22-32); Chloride 105 mmol/L (98-107); Cholesterol 190 mg/dL (140-199); Estimated Glomerular Filt Rate > 60.0 mL/min (>60); Globulin 2.4 g/dL (1.7-4.1); Glucose 108 mg/dL (70-100); HDL Cholesterol 38 mg/dL (40-60); HEMOLYSIS < 15 (0-50); LDL Cholesterol Calculated 100 mg/dL (<100); Potassium 3.9 mmol/L (3.4-5.1); Sodium 139 mmol/L (137-145); Total Protein 6.8 g/dL (6.3-8.2); Triglycerides 258 mg/dL (35-150)
[2020-03-21 11:08] LABS: Prostate Specific Antigen 2.34 ng/mL (0.10-4.00)
== END ==
PROVIDERS: PCP Family Medicine; Referring Provider Family Medicine; Visit Provider Family Medicine
DX: E66.9 Obesity, unspecified (principal); I10 Essential (primary) hypertension; Z12.5 Encounter for screening for malignant neoplasm of prostate; D75.1 Secondary polycythemia
CPT/HCPCS: 36415; 80053; 80061; 84153; 85025

== ENCOUNTER → 2020-10-26 07:20 | Outpatient (CLI) | payer OTHER, SELFPAY ==
[2020-10-26 08:34] LABS: Alanine Aminotransferase 35 IU/L (<50); Albumin 4.5 g/dL (3.5-5.0); Albumin Globulin Ratio 2.1 (1.0-2.8); Alkaline Phosphatase 56 U/L (38-126); Aspartate Aminotransferase 25 IU/L (17-59); BUN Creatinine Ratio 19.5 (6-22); Bilirubin Total 0.7 mg/dL (0.2-1.3); Blood Urea Nitrogen 16 mg/dL (9-20); Calcium 9.8 mg/dL (8.4-10.2); Carbon Dioxide 28 mmol/L (22-32); Chloride 105 mmol/L (98-107); Cholesterol 195 mg/dL (140-199); Estimated Glomerular Filt Rate > 60.0 mL/min (>60); Globulin 2.1 g/dL (1.7-4.1); Glucose 122 mg/dL (70-100); HDL Cholesterol 40 mg/dL (40-60); HEMOLYSIS < 15 (0-50); LDL Cholesterol Calculated 98 mg/dL (<100); Potassium 4.1 mmol/L (3.4-5.1); Sodium 139 mmol/L (137-145); Total Protein 6.6 g/dL (6.3-8.2); Triglycerides 284 mg/dL (35-150)
[2020-10-26 11:18] LABS: Creatinine Urine Random 108.6 mg/dL
[2020-10-26 11:23] LABS: Microalbumin Urine Random < 0.6 mg/dL (0-1.6)
== END ==
PROVIDERS: PCP Family Medicine; Referring Provider Family Medicine; Visit Provider Family Medicine
DX: E66.9 Obesity, unspecified (principal); I10 Essential (primary) hypertension
CPT/HCPCS: 36415; 80053; 80061; 82043; 82570

== ENCOUNTER → 2020-10-31 15:03 | Outpatient (CLI) | payer OTHER, SELFPAY ==
[2020-10-31 16:34] LABS: Hemoglobin A1C% w Est Avg Glu 5.1 % (4.0-6.0)
== END ==
PROVIDERS: PCP Family Medicine; Referring Provider Family Medicine; Visit Provider Family Medicine
DX: R73.9 Hyperglycemia, unspecified (principal)
CPT/HCPCS: 36415; 83036

== ENCOUNTER → 2021-04-25 09:45 | Outpatient (CLI) | payer OTHER, SELFPAY ==
[2021-04-25 11:00] LABS: BUN Creatinine Ratio 18.8 (6-22); Blood Urea Nitrogen 15 mg/dL (9-20); Calcium 9.6 mg/dL (8.4-10.2); Carbon Dioxide 26 mmol/L (22-32); Chloride 107 mmol/L (98-107); Estimated Glomerular Filt Rate > 60.0 mL/min (>60); Glucose 112 mg/dL (70-100); HEMOLYSIS < 15 (0-50); Sodium 139 mmol/L (137-145)
== END ==
PROVIDERS: PCP Family Medicine; Referring Provider Internal Medicine Cardiovascular Disease; Visit Provider Internal Medicine Cardiovascular Disease
DX: Z51.81 Encounter for therapeutic drug level monitoring (principal); Z79.899 Other long term (current) drug therapy
CPT/HCPCS: 36415; 80048

== ENCOUNTER → 2021-06-15 16:51 | Outpatient (CLI) | payer OTHER, SELFPAY ==
[2021-06-15 17:19] LABS: Appearance Urine UA CLEAR; Bilirubin Urine UA NEGATIVE (NEGATIVE); Color Urine UA YELLOW; Glucose Urine UA NEGATIVE (Negative); Ketones Urine UA NEGATIVE (NEGATIVE); Leukocyte Esterase Urine UA NEGATIVE (NEGATIVE); Nitrite Urine UA NEGATIVE (Negative); Occult Blood Urine UA NEGATIVE (Negative); Protein Urine UA NEGATIVE (Negative); Urobilinogen Urine UA 0.2 E.U./dL (0.2); pH Urine UA 5.5 (4.5-8.0)
[2021-06-15 17:33] LABS: Bacteria Urine None Seen; Culture Indicated Urine Cult Not Indicated; RBC Urine None Seen (0-5/HPF); WBC Urine 0-1/HPF (0-5/HPF)
== END ==
PROVIDERS: PCP Family Medicine; Referring Provider Family Medicine; Visit Provider Family Medicine
DX: R30.0 Dysuria (principal)
CPT/HCPCS: 81001

== ENCOUNTER 2021-10-11 14:58 | Emergency (ER) | payer OTHER, SELFPAY ==
[2021-10-11] VITALS (8 sets, daily range): BP systolic 132–158; BP diastolic 76–99; PULSE 67–83; RESP 15–18; TEMP 36.6; O2SAT 95–99; BMI 36.8
[2021-10-11 15:41] LABS: Add Manual Diff / Slide Review NO; Basophils Absolute Auto 100 /uL (0-100); Basophils Percent Auto 1.1 % (0-2); Eosinophils Absolute Auto 100 /uL (0-450); Hematocrit 44.7 % (41-53); Hemoglobin 15.6 g/dL (13.5-17.5); Lymphocytes Absolute Auto 1900 /uL (1100-4500); Lymphocytes Percent Auto 29.8 % (25-40); Mean Corpuscular HGB Conc 34.9 % (30-36); Mean Corpuscular Hemoglobin 31.1 PG (26-34); Mean Corpuscular Volume 89.1 fL (80-100); Monocytes Absolute Auto 500 /uL (0-900); Monocytes Percent Auto 8.2 % (3-14); Neutrophils Absolute Auto 3800 /uL (1500-7000); Neutrophils Percent Auto 58.9 % (50-75); Platelet Count 232 X10^3/uL (150-400); Red Blood Cell Count 5.02 X10^6/uL (4.5-5.9); Red Cell Distribution Width 12.8 % (11.6-14.8); White Blood Cell Count 6.4 X10^3/uL (4.5-11.0)
[2021-10-11 15:52] LABS: BUN Creatinine Ratio 14.9 (6-22); Blood Urea Nitrogen 14 mg/dL (9-20); Calcium 9.6 mg/dL (8.4-10.2); Carbon Dioxide 29 mmol/L (22-32); Chloride 106 mmol/L (98-107); Creatine Kinase 85 U/L (55-170); Estimated Glomerular Filt Rate > 60.0 mL/min (>60); Glucose 117 mg/dL (70-100); HEMOLYSIS < 15 (0-50); Potassium 3.6 mmol/L (3.4-5.1); Sodium 140 mmol/L (137-145)
--- NOTE | 2021-10-11 15:57 | ED_ITS ---
HPI - Headache General Chief Complaint: Headache Stated Complaint: High blood pressure, bad headache Time Seen by Provider: 10/11/21 15:20 Source: patient Mode of arrival: Ambulatory Limitations: no limitations History of Present Illness HPI Narrative: 51-year-old male with a history of high blood pressure. He is on medications for this. He also has a history of atrial fibrillation. Had a ablation. Is still on anticoagulation. Has been taking his blood pressure medication as directed. Is here for evaluation of headache and high blood pressure. He states that he has blood pressure normally runs in the 130s systolic. A couple times over the past couple weeks he has had headache that has come and gone on its own. He has a headache that started this morning. Behind his eyes. Sharp and throbbing. He contacted his primary doctor to describe the symptoms. He was asked to take his blood pressure. He took his blood pressure 3 times. The 1st time was 140's systolic. Second time was 160's systolic. The 3rd time was 140's systolic. He was instructed to come to the emergency department for eval uation. Related Data Home Medications Medication Instructions Recorded Confirmed cholecalciferol (vitamin D3) 125 5,000 unit PO DAILY 02/03/18 01/30/21 mcg (5,000 unit) capsule Previous Rx's Medication Instructions Recorded loperamide 2 mg capsule 2 mg PO Q2-4H PRN #14 cap 10/01/19 furosemide 20 mg tablet 20 mg PO QAM PRN #30 tab 01/22/20 sotalol 80 mg tablet 80 mg PO BID #60 tab 10/31/20 irbesartan 300 See Rx Instructions .ROUTE 05/19/21 mg-hydrochlorothiazide 12.5 mg .COMPLEX #90 tab tablet Allergies Allergy/AdvReac Type Severity Reaction Status Date / Time azithromycin [From Zithromax] Allergy Intermediate Rash Verified 10/11/21 15:17 doxycycline Allergy Intermediate Rash Verified 10/11/21 15:17 Penicillins Allergy Intermediate Rash Verified 10/11/21 15:17 Review of Systems Constitutional Constitutional: Denies fatigue, Denies fever(s) and Reports headache(s) Eyes Eyes: Denies change in vision ENT Ears, Nose, Mouth, and Throat: Reports headache(s) Cardiovascular Cardiovascular: Denies chest pain and Denies dyspnea Respiratory Respiratory: Denies dyspnea Gastrointestinal Gastrointestinal: Denies abdominal pain, Denies nausea and Denies vomiting Musculoskeletal Musculoskeletal: Reports system reviewed and no additional complaints, except as documented Integumentary/Breasts Skin/Breast: Reports system reviewed and no additional complaints, except as documented Neurologic Neurologic: Reports headache(s) Endocrine Endocrine: Denies fatigue Hematologic/Lymphatic On Anticoagulants: Yes Patient History Medical History Atrial fibrillation Essential hypertension SVT (supraventricular tachycardia) Surgical History S/P wisdom tooth extraction Family History Father Diabetes mellitus Mother Diabetes mellitus Social History marital status: household members: spouse occupational status: employed ([employer]) Smoking Status: Former smoker alcohol intake: current (rare) substance use type: does not use Smoking Status: Former smoker alcohol intake frequency: a few times a month Substance Use Type: does not use Exam Initial Vital Signs Initial Vital Signs: Vital Signs Temperature 97.8 F 10/11/21 15:09 Pulse Rate 83 10/11/21 15:09 Respiratory Rate 16 10/11/21 15:09 Blood Pressure 158/99 H 10/11/21 15:09 Pulse Oximetry 98 10/11/21 15:09 HENMT Head: normal to inspection and normocephalic Eyes General: appearance normal, both eyes and all related structures Resp Effort & Inspection: normal respiratory effort Auscultation: clear to auscultation bilaterally Cardio Rate: regular rate Rhythm: regular rhythm GI Inspection: normal to inspection Skin General: no rashes or lesions noted Neuro General: patient alert, patient awake, patient oriented x3 and moves all extre mities Cranial Nerves: CN's II-XI intact bilaterally Cognition: normal cognition Gait: normal gait Motor: muscle tone normal throughout Sensory Exam: no sensory deficits noted Extrem General: normal to inspection and No edema Psych Appearance: grossly normal and well kempt Course Orders Ordered: ED Orders 10/11/21 15:20 EKG-12 Lead Stat 10/11/21 15:30 Basic Metabolic Panel Stat Complete Blood Count AUTO DIFF Stat Troponin & CK Cardiac Panel Stat Discontinued Medications Ketorolac Tromethamine (Ketorolac 30 Mg/Ml Vial) 30 mg IV NOW ONE Stop: 10/11/21 15:59 Last Admin: 10/11/21 16:18 Dose: 30 mg Documented by: RUTH Vital Signs Vital signs: Vital Signs - 8 hr 10/11/21 15:09 10/11/21 16:14 10/11/21 16:30 Temperature 97.8 F Pulse Rate 83 72 67 Respiratory Rate 16 17 18 Blood Pressure 158/99 H Pulse Oximetry 98 96 95 10/11/21 17:00 10/11/21 17:30 10/11/21 17:34 Temperature Pulse Rate 76 70 72 Respiratory Rate 15 15 17 Blood Pressure 144/84 H Pulse Oximetry 95 96 97 10/11/21 17:51 Temperature Pulse Rate 72 Respiratory Rate Blood Pressure 134/78 Pulse Oximetry 99 MDM - Headache Lab Data Attestation: I reviewed the patient's lab results. Result diagrams: 10/11/21 15:30 10/11/21 15:30 Labs: Lab Results 10/11/21 10/11/21 Range/Units 15:30 15:30 WBC 6.4 (4.5-11.0) X10^3/uL RBC 5.02 (4.5-5.9) X10^6/uL Hgb 15.6 (13.5-17.5) g/dL Hct 44.7 (41-53) % MCV 89.1 (80-100) fL MCH 31.1 (26-34) PG MCHC 34.9 (30-36) % RDW 12.8 (11.6-14.8) % Plt Count 232 (150-400) X10^3/uL Neut % (Auto) 58.9 (50-75) % Lymph % (Auto) 29.8 (25-40) % [place] % (Auto) 8.2 (3-14) % Eos % (Auto) 2.0 (2-4) % Baso % (Auto) 1.1 (0-2) % Neut # (Auto) 3800 (3179-2752) /uL Lymph # (Auto) 1900 (0317-8649) /uL [place] # (Auto) 500 (0-900) /uL Eos # (Auto) 100 (0-450) /uL Baso # (Auto) 100 (0-100) /uL Sodium 140 (137-145) mmol/L Potassium 3.6 (3.4-5.1) mmol/L Chloride 106 (98-107) mmol/L Carbon Dioxide 29 (22-32) mmol/L BUN 14 (9-20) mg/dL Creatinine 0.94 (0.66-1.25) mg/dL Estimated GFR > 60.0 (>60) mL/min BUN/Creatinine Ratio 14.9 (6-22) Glucose 117 H (70-100) mg/dL Calcium 9.6 (8.4-10.2) mg/dL Total Creatine Kinase 85 (55-170) U/L CK-MB (CK-2) TNP CK-MB (CK-2) Rel Index TNP Troponin I < 0.012 (0.01-0.034) ng/mL ECG Data Attestation: I personally reviewed and interpreted this ECG as follows: Interpretation: Sinus rhythm Ventricular rate is 78 Normal axis Normal QRS Normal QTC No ST T wave changes MDM Narrative Medical decision making narrative: Patient's EKG and labs are unremarkable. He has a normal neurologic exam. He was given IV Toradol and after period of time of rest his blood pressure improved and his headache improved as well. Low suspicion for CVA or int racranial hemorrhage given his presentation today. He states he has had these headaches weekly but not every day over the past couple weeks. I feel we can hold on further workup today. Will have him contact his primary doctor for a follow-up. He is given return precautions. Expressed understanding and agreement. Discharge Plan Departure Patient Disposition: Home Clinical Impression: Headache, Hypertension Instructions: DI for Headache Activity Restrictions/Additional Instructions: I do recommend that you continue to take all of your medications as directed. Contact your primary doctor and your grab operator for follow-up. Return to the emergency department for any new or worsening symptoms. Prescriptions: No Action sotalol 80 mg tablet 80 mg PO BID Qty: 60 0RF furosemide 20 mg tablet 20 mg PO QAM PRN (Reason: edema) Qty: 30 0RF irbesartan-hydrochlorothiazide 300-12.5 mg tablet See Rx Instructions .ROUTE .COMPLEX Qty: 90 1RF Dose Instruction: TAKE 1 TABLET BY MOUTH DAILY Rx Instructions: TAKE 1 TABLET BY MOUTH DAILY cholecalciferol (vitamin D3) 5,000 unit capsule 5,000 unit PO DAILY 0RF loperamide 2 mg capsule 2 mg PO Q2-4H PRN (Reason: loose stool) Qty: 14 0RF Rx Instructions: after each loose stool until symptoms controlled;do not exceed 16 mg total dose in 24 hrs Referrals: Yuki Howell DO [Primary Care Provider] -
[2021-10-11 16:04] LABS: Troponin I < 0.012 ng/mL (0.01-0.034)
[2021-10-11] MEDS: KETOROLAC 30 MG/ML VIAL IV (16:18)
== END 2021-10-11 18:28 | disposition home or self-care (01) ==
PROVIDERS: Emergency Provider Emergency Medicine; PCP Family Medicine
DX: I10 Essential (primary) hypertension (principal); R51.9 Headache, unspecified; Z87.891 Personal history of nicotine dependence
CPT/HCPCS: 36415; 80048; 82550; 84484; 85025; 93005; 96374; 99284; J1885

== ENCOUNTER 2021-11-24 15:26 | Emergency (ER) | payer OTHER, SELFPAY ==
[2021-11-24] VITALS (9 sets, daily range): BP systolic 141–168; BP diastolic 66–87; PULSE 69–81; RESP 12–22; TEMP 36.6; O2SAT 97–100; BMI 37.4
[2021-11-24 17:08] LABS: Add Manual Diff / Slide Review NO; Basophils Absolute Auto 100 /uL (0-100); Basophils Percent Auto 0.5 % (0-2); Eosinophils Absolute Auto 100 /uL (0-450); Eosinophils Percent Auto 1.1 % (2-4); Hematocrit 43.8 % (41-53); Hemoglobin 15.4 g/dL (13.5-17.5); Lymphocytes Absolute Auto 1600 /uL (1100-4500); Lymphocytes Percent Auto 15.1 % (25-40); Mean Corpuscular HGB Conc 35.3 % (30-36); Mean Corpuscular Hemoglobin 31.5 PG (26-34); Mean Corpuscular Volume 89.3 fL (80-100); Monocytes Absolute Auto 900 /uL (0-900); Monocytes Percent Auto 8.3 % (3-14); Neutrophils Absolute Auto 7700 /uL (1500-7000); Platelet Count 178 X10^3/uL (150-400); Red Blood Cell Count 4.91 X10^6/uL (4.5-5.9); Red Cell Distribution Width 12.9 % (11.6-14.8); White Blood Cell Count 10.3 X10^3/uL (4.5-11.0)
[2021-11-24 17:12] LABS: Alanine Aminotransferase 40 IU/L (<50); Albumin 4.5 g/dL (3.5-5.0); Albumin Globulin Ratio 1.8 (1.0-2.8); Alkaline Phosphatase 64 U/L (38-126); Aspartate Aminotransferase 27 IU/L (17-59); BUN Creatinine Ratio 15.9 (6-22); Bilirubin Total 0.9 mg/dL (0.2-1.3); Blood Urea Nitrogen 14 mg/dL (9-20); Calcium 9.3 mg/dL (8.4-10.2); Carbon Dioxide 29 mmol/L (22-32); Chloride 103 mmol/L (98-107); Estimated Glomerular Filt Rate > 60.0 mL/min (>60); Globulin 2.5 g/dL (1.7-4.1); Glucose 111 mg/dL (70-100); HEMOLYSIS < 15 (0-50); Lipase 34 U/L (23-300); Potassium 4.3 mmol/L (3.4-5.1); Sodium 139 mmol/L (137-145)
--- NOTE | 2021-11-24 17:32 | ED_ITS ---
HPI - Abdominal Pain General Chief Complaint: Abdominal Pain Stated Complaint: SHARP LEFT SIDE ABD PAIN Time Seen by Provider: 11/24/21 17:16 Source: patient Mode of arrival: Ambulatory History of Present Illness HPI narrative: 51-year-old male who has a history of atrial fibrillation with ablation on sotalol and on Eliquis presents with left-sided abdominal pain ongoing since this morning. He said usually he has 3 bowel movements a day last couple days he has not had any. Said he got this morning his his pain was due to constipation. He took Dulcolax suppository without any relief. He denies any fever or chills. No nausea or vomiting. He has no chest pain or shortness of breath Related Data Home Medications Medication Instructions Recorded Confirmed cholecalciferol (vitamin D3) 125 5,000 unit PO DAILY 02/03/18 01/30/21 mcg (5,000 unit) capsule Previous Rx's Medication Instructions Recorded loperamide 2 mg capsule 2 mg PO Q2-4H PRN #14 cap 10/01/19 furosemide 20 mg tablet 20 mg PO QAM PRN #30 tab 01/22/20 sotalol 80 mg tablet 80 mg PO BID #60 tab 10/31/20 butalbital 50 mg-acetaminophen 325 1 cap PO Q4H PRN #20 cap 10/30/21 mg-caffeine 40 mg-codeine 30 mg cap irbesartan 300 See Rx Instructions .ROUTE 11/13/21 mg-hydrochlorothiazide 12.5 mg .COMPLEX #90 tab tablet metronidazole 500 mg tablet 500 mg PO Q8H 10 Days #30 tab 11/24/21 sulfamethoxazole 800 1 tab PO BID 10 Days #20 tab 11/24/21 mg-trimethoprim 160 mg tablet (Bactrim DS) Allergies Allergy/AdvReac Type Severity Reaction Status Date / Time azithromycin [From Zithromax] Allergy Intermediate Rash Verified 11/24/21 15:47 doxycycline Allergy Intermediate Rash Verified 11/24/21 15:47 Penicillins Allergy Intermediate Rash Verified 11/24/21 15:47 Review of Systems Review of Systems Narrative: GENERAL: Denies chills, fatigue, malaise, fever, sweats, travel HEENT: Denies sinus pain, ear pain, sore throat, difficulty swallowing, neck pain RESPIRATORY: Denies dyspnea, cough, wheezing, hemoptysis, sputum. CARDIOVASCULAR: Denies chest pain, palpitations, orthopnea, edema GASTROINTESTINAL: See HPI : Denies dysuria, frequency, incontinence, hematuria, urinary retention, flank pain. MUSCULOSKELETAL: Denies weakness, joint pain, or bony pain SKIN: No rash, no erythema, no pruritus NEUROLOGIC: Denies weakness, dizziness, headache, numbness, change in speech, confusion PSYCHIATRIC: No concerning psychosocial issues. 12 point review of systems is negative except for those stated above and HPI Patient History Medical History Atrial fibrillation Essential hypertension SVT (supraventricular tachycardia) Surgical History S/P wisdom tooth extraction Family History Father Diabetes mellitus Mother Diabetes mellitus Social History marital status: household members: spouse occupational status: employed ([employer]) Smoking Status: Former smoker alcohol intake: current (rare) substance use type: does not use Smoking Status: Former smoker alcohol intake frequency: a few times a month Substance Use Type: does not use Exam Initial Vital Signs Initial Vital Signs: Vital Signs Temperature 97.8 F 11/24/21 15:47 Pulse Rate 69 11/24/21 15:47 Respiratory Rate 14 11/24/21 15:47 Blood Pressure 154/87 H 11/24/21 15:47 Pulse Oximetry 98 11/24/21 15:47 GENERAL: Alert pleasant 51-year-old male in no acute distress in no acute distress. HEENT: Head atraumatic,EOMI, pupils reactive, face symmetric, moist mucous membranes CARDIOVASCULAR: Regular rate and rhythm without murmurs, rubs or gallops. RESPIRATORY: Breath sounds equal bilaterally, no wheezes rales or rhonchi. ABDOMEN: Soft, mild left flank pain : No CVA tenderness EXTREMITIES: Normal range of motion, no clubbing or edema. Neurovascularly intact NEUROLOGICAL: Alert and oriented x4.Normal gait and speech. SKIN: Warm, dry, no laceration, no petechiae, no rashes or lesions. Course Orders Ordered: Discontinued Medications Acetaminophen (Acetaminophen 325 Mg Tablet) 975 mg PO NOW ONE Stop: 11/24/21 17:37 Last Admin: 11/24/21 18:18 Dose: 975 mg Documented by: RUTH Vital Signs Vital signs: Vital Signs - 8 hr 11/24/21 15:47 11/24/21 16:25 11/24/21 16:30 Temperature 97.8 F Pulse Rate 69 80 73 Respiratory Rate 14 Blood Pressure 154/87 H 150/76 H 142/71 H Pulse Oximetry 98 98 98 11/24/21 17:00 11/24/21 17:08 Temperature Pulse Rate 75 81 Respiratory Rate Blood Pressure 141/66 H 154/86 H Pulse Oximetry 98 97 MDM - Abdominal Pain Lab Data Result diagrams: 11/24/21 16:47 11/24/21 16:47 Labs: Lab Results 11/24/21 11/24/21 Range/Units 16:47 16:47 WBC 10.3 (4.5-11.0) X10^3/uL RBC 4.91 (4.5-5.9) X10^6/uL Hgb 15.4 (13.5-17.5) g/dL Hct 43.8 (41-53) % MCV 89.3 (80-100) fL MCH 31.5 (26-34) PG MCHC 35.3 (30-36) % RDW 12.9 (11.6-14.8) % Plt Count 178 (150-400) X10^3/uL Neut % (Auto) 75.0 (50-75) % Lymph % (Auto) 15.1 L (25-40) % [place] % (Auto) 8.3 (3-14) % Eos % (Auto) 1.1 L (2-4) % Baso % (Auto) 0.5 (0-2) % Neut # (Auto) 7700 H (6352-2069) /uL Lymph # (Auto) 1600 (0145-5492) /uL [place] # (Auto) 900 (0-900) /uL Eos # (Auto) 100 (0-450) /uL Baso # (Auto) 100 (0-100) /uL Sodium 139 (137-145) mmol/L Potassium 4.3 (3.4-5.1) mmol/L Chloride 103 (98-107) mmol/L Carbon Dioxide 29 (22-32) mmol/L BUN 14 (9-20) mg/dL Creatinine 0.88 (0.66-1.25) mg/dL Estimated GFR > 60.0 (>60) mL/min BUN/Creatinine Ratio 15.9 (6-22) Glucose 111 H (70-100) mg/dL Calcium 9.3 (8.4-10.2) mg/dL Total Bilirubin 0.9 (0.2-1.3) mg/dL AST 27 (17-59) IU/L ALT 40 (<50) IU/L Alkaline Phosphatase 64 (38-126) U/L Total Protein 7.0 (6.3-8.2) g/dL Albumin 4.5 (3.5-5.0) g/dL Globulin 2.5 (1.7-4.1) g/dL Albumin/Globulin Ratio 1.8 (1.0-2.8) Lipase 34 (23-300) U/L Imaging Data CT scan - abdomen/pelvis: Radiologist's Impression: PROCEDURE:? CT ABDOMEN PELVIS W CON ? INDICATIONS:? llq pain ? TECHNIQUE:? After the administration of intravenous contrast, axial sections acquired from the lung bases to the pubic symphysis.? Coronal and sagittal reformats were performed.? For radiation dose reduction, the following was used:? automated exposure control, adjustment of mA and/or kV according to patient size.? ? COMPARISON:? None. ? FINDINGS:? Image quality:? Excellent.? ? Lung bases:? Unremarkable. Heart:? No significant findings. ? ABDOMEN: Liver:? Diffuse fatty infiltration of the liver. Gallbladder:? Unremarkable.? ? Biliary ducts:? Unremarkable.? ? Pancreas:? Unremarkable.? ? Spleen:? Unremarkable.? ? Adrenal Glands:? Unremarkable.? ? Kidneys and Ureters:? Unremarkable.? ? ? Stomach and Bowel:? Stomach and small bowel loops are unremarkable.? Scattered diverticula in the colon.? Circumferential wall thickening and adjacent inflammation involving segment of left mid colon most compatible with diverticulitis.? The appendix is normal. ? Peritoneum:? Trace free fluid noted in the left pericolic gutter.? No free air.? ? Ventral Wall: ? No hernias.? Abdominal Nodes:? No retroperitoneal or mesenteric adenopathy by size criteria.? Vessels:? Aorta and inferior vena cava are normal in size.? ? PELVIS: Pelvic Organs:? Unremarkable.? ? Bladder:? Unremarkable.? ? Pelvic Nodes: No enlarged lymph nodes.? Miscellaneous: No hernias are seen. ? ? ? Bones:? Lower lumbar spine degenerative disc disease and facet arthropathy. ? ? IMPRESSION:? ? 1. Left colon diverticulitis.? No free air or golden-diverticular abscess.? ? 2.? Hepatic steatosis.? Dictated by: Loan Fierro MD, PhD on 11/24/2021 at 18:16 ? ? Approved by: Loan Fierro MD, PhD on 11/24/2021 at 18:20 ? [facility] Narrative Medical decision making narrative: Patient is in sinus rhythm on the monitor. He is afebrile without leukocytosis. He is diagnosed with diverticulitis without complication. Pain is controlled on Tylenol. Will discharge home on antibiotics. However lower quinolones p rolonged QT and does not interact with sotalol. He is allergic to penicillin. Will put him on Bactrim which can interact with electrolytes I did encourage him to have his electrolytes rechecked with his PCP. Discharge Plan Departure Patient Disposition: Home Clinical Impression: Diverticulitis Instructions: DI for Diverticulitis Activity Restrictions/Additional Instructions: *You have been diagnosed with diverticulitis *What to do: At this time do have an infection in your colon. Easily treated with antibiotics. I do recommend a bland diet until your done with antibiotics and then recommend high-fiber diet to help prevent this from happening again. *Continue to take medications as directed--> sent to [facility] Bactrim 1 tablet twice a day for 10 days (may need to check electrolytes afterwards they can interact with your medications) Flagyl 500 mg 3 times a day for 10 days (do not drink alcohol with this medication) *Follow up with your primary care provider in 2-3 days or call [phone] *Return to ER if you should have increasing pain, bloody stools, fever, persistent vomiting or any new, worsening or concerning symptoms Prescriptions: New metronidazole 500 mg tablet 500 mg PO Q8H 10 Days Qty: 30 0RF sulfamethoxazole-trimethoprim [Bactrim DS] 800-160 mg tablet 1 tab PO BID 10 Days Qty: 20 0RF No Action [id number] [id number] mg capsule 1 cap PO Q4H PRN (Reason: pain) Qty: 20 0RF sotalol 80 mg tablet 80 mg PO BID Qty: 60 0RF furosemide 20 mg tablet 20 mg PO QAM PRN (Reason: edema) Qty: 30 0RF irbesartan-hydrochlorothiazide 300-12.5 mg tablet See Rx Instructions .ROUTE .COMPLEX Qty: 90 3RF Dose Instruction: TAKE 1 TABLET BY MOUTH DAILY Rx Instructions: TAKE 1 TABLET BY MOUTH DAILY cholecalciferol (vitamin D3) 5,000 unit capsule 5,000 unit PO DAILY 0RF loperamide 2 mg capsule 2 mg PO Q2-4H PRN (Reason: loose stool) Qty: 14 0RF Rx Instructions: after each loose stool until symptoms controlled;do not exceed 16 mg total dose in 24 hrs Referrals: Yuki Howell DO [Primary Care Provider] -
--- NOTE | 2021-11-24 17:33 | DI.CT.S_ITS ---
PROCEDURE: CT ABDOMEN PELVIS W CON INDICATIONS: llq pain TECHNIQUE: After the administration of intravenous contrast, axial sections acquired from the lung bases to the pubic symphysis. Coronal and sagittal reformats were performed. For radiation dose reduction, the following was used: automated exposure control, adjustment of mA and/or kV according to patient size. COMPARISON: None. FINDINGS: Image quality: Excellent. Lung bases: Unremarkable. Heart: No significant findings. ABDOMEN: Liver: Diffuse fatty infiltration of the liver. Gallbladder: Unremarkable. Biliary ducts: Unremarkable. Pancreas: Unremarkable. Spleen: Unremarkable. Adrenal Glands: Unremarkable. Kidneys and Ureters: Unremarkable. Stomach and Bowel: Stomach and small bowel loops are unremarkable. Scattered diverticula in the colon. Circumferential wall thickening and adjacent inflammation involving segment of left mid colon most compatible with diverticulitis. The appendix is normal. Peritoneum: Trace free fluid noted in the left pericolic gutter. No free air. Ventral Wall: No hernias. Abdominal Nodes: No retroperitoneal or mesenteric adenopathy by size criteria. Vessels: Aorta and inferior vena cava are normal in size. PELVIS: Pelvic Organs: Unremarkable. Bladder: Unremarkable. Pelvic Nodes: No enlarged lymph nodes. Miscellaneous: No hernias are seen. Bones: Lower lumbar spine degenerative disc disease and facet arthropathy. IMPRESSION: 1. Left colon diverticulitis. No free air or golden-diverticular abscess. 2. Hepatic steatosis. Dictated by: Loan Fierro MD, PhD on 11/24/2021 at 18:16 Approved by: Loan Fierro MD, PhD on 11/24/2021 at 18:20
[2021-11-24] MEDS: ACETAMINOPHEN 325 MG TABLET 975 MG PO (18:18)
== END 2021-11-24 18:57 | disposition home or self-care (01) ==
PROVIDERS: Emergency Provider Emergency Medicine; PCP Family Medicine
DX: K57.32 Diverticulitis of large intestine without perforation or abscess without bleeding (principal)
CPT/HCPCS: 36415; 74177; 80053; 83690; 85025; 99284; Q9967

== ENCOUNTER → 2022-08-02 12:21 | Outpatient (CLI) | payer OTHER, SELFPAY ==
[2022-08-02 13:10] LABS: Influenza A - CEPHEID Flu A POSITIVE (NEGATIVE); Influenza B - CEPHEID Flu B NEGATIVE (NEGATIVE); Respiratory Syncytial Virus POSITIVE (Negative)
[2022-08-02 13:15] LABS: COVID-19 CEPHEID 4-PLEX PCR Negative (Negative)
== END ==
PROVIDERS: PCP Family Medicine; Visit Provider Nurse Practitioner Family
DX: J06.9 Acute upper respiratory infection, unspecified (principal); Z20.822 Contact with and (suspected) exposure to COVID-19
CPT/HCPCS: 0241U

== ENCOUNTER → 2022-11-26 15:39 | Outpatient (CLI) | payer OTHER, SELFPAY ==
--- NOTE | 2022-11-26 15:40 | DI.RAD.S_ITS ---
PROCEDURE: XR HAND LT MIN 3V INDICATIONS: left thumb pain, CMC joint TECHNIQUE: 3 views of the hand(s) acquired. COMPARISON: None. FINDINGS: Bones: No fractures or dislocations. Carpal bones are normally aligned. No suspicious bony lesions. Moderate to severely narrowed 1st CMC joint with periarticular osteophyte formation. No erosive changes. Soft tissues: No suspicious soft tissue calcifications. 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 Dictated by: Marcelino Martin [facility] Interpreted: Azar Michel MD on 11/26/2022 at 15:48 Transcribed by: LESLEY on 11/26/2022 at 15:49 Approved by: Juan Michel M.D. on 11/28/2022 at 16:22
== END ==
PROVIDERS: PCP Family Medicine; Referring Provider Family Medicine; Visit Provider Family Medicine
DX: M18.12 Unilateral primary osteoarthritis of first carpometacarpal joint, left hand (principal); M79.645 Pain in left finger(s)
CPT/HCPCS: 73130

== ENCOUNTER → 2022-12-15 09:42 | Outpatient (CLI) | payer OTHER, SELFPAY ==
[2022-12-15 10:56] LABS: Add Manual Diff / Slide Review NO; Basophils Absolute Auto 0 /uL (0-100); Basophils Percent Auto 0.6 % (0-2); Eosinophils Absolute Auto 200 /uL (0-450); Eosinophils Percent Auto 3.2 % (2-4); Hemoglobin 15.8 g/dL (13.5-17.5); Lymphocytes Absolute Auto 1800 /uL (1100-4500); Lymphocytes Percent Auto 28.2 % (25-40); Mean Corpuscular HGB Conc 35.1 % (30-36); Mean Corpuscular Volume 88.2 fL (80-100); Monocytes Absolute Auto 400 /uL (0-900); Monocytes Percent Auto 6.9 % (3-14); Neutrophils Absolute Auto 3900 /uL (1500-7000); Neutrophils Percent Auto 61.1 % (50-75); Platelet Count 186 X10^3/uL (150-400); White Blood Cell Count 6.3 X10^3/uL (4.5-11.0)
[2022-12-15 10:59] LABS: Alanine Aminotransferase 58 IU/L (<50); Albumin 4.4 g/dL (3.5-5.0); Albumin Globulin Ratio 1.8 (1.0-2.8); Alkaline Phosphatase 67 U/L (38-126); Aspartate Aminotransferase 42 IU/L (17-59); Bilirubin Total 0.9 mg/dL (0.2-1.3); Blood Urea Nitrogen 13 mg/dL (9-20); Calcium 9.1 mg/dL (8.4-10.2); Carbon Dioxide 30 mmol/L (22-32); Chloride 104 mmol/L (98-107); Cholesterol 194 mg/dL (140-199); Estimated Glomerular Filt Rate > 60 mL/min (>60); Globulin 2.5 g/dL (1.7-4.1); Glucose 127 mg/dL (70-100); HDL Cholesterol 43 mg/dL (40-60); HEMOLYSIS < 15 (0-50); LDL Cholesterol Calculated 106 mg/dL (<100); Potassium 3.9 mmol/L (3.4-5.1); Sodium 139 mmol/L (137-145); Total Protein 6.9 g/dL (6.3-8.2); Triglycerides 223 mg/dL (35-150)
[2022-12-15 11:29] LABS: Prostate Specific Antigen Scrn 2.68 ng/mL (0.1-4.0)
== END ==
PROVIDERS: PCP Family Medicine; Referring Provider Family Medicine; Visit Provider Family Medicine
DX: Z12.5 Encounter for screening for malignant neoplasm of prostate (principal); R06.83 Snoring; E78.5 Hyperlipidemia, unspecified; I10 Essential (primary) hypertension
CPT/HCPCS: 36415; 80053; 80061; 85025; G0103

== ENCOUNTER → 2023-04-02 11:18 | Outpatient (CLI) | payer OTHER, SELFPAY ==
--- NOTE | 2023-04-02 | DI.US.S_ITS ---
PROCEDURE: US PERIPH VENOUS LOW EXTREM BI INDICATIONS: LEG SWELLING TECHNIQUE: Real-time imaging, as well as color and pulse Doppler interrogation, were performed of the deep veins of both legs from the inguinal ligament to the popliteal fossa, with documentation of the visualized calf veins. COMPARISON: None. FINDINGS: Right: The common femoral, femoral, popliteal, and the visualized calf veins are normally compressible, and free of intraluminal thrombus. Color and pulse Doppler demonstrate normal phasic intravascular flow. There is normal augmentation response to distal compression maneuver. Left: The common femoral, femoral, popliteal, and the visualized calf veins are normally compressible, and free of intraluminal thrombus. Color and pulse Doppler demonstrate normal phasic intravascular flow. There is normal augmentation response to distal compression maneuver. IMPRESSION: No findings of deep venous thrombosis in either lower extremity. Approved by: Saud Rey M.D. on 04/02/2023 at 12:47
== END ==
PROVIDERS: PCP Family Medicine; Referring Provider Nurse Practitioner; Visit Provider Nurse Practitioner
DX: M79.89 Other specified soft tissue disorders (principal)
CPT/HCPCS: 93970

== ENCOUNTER → 2023-04-23 08:01 | Outpatient (CLI) | payer OTHER, SELFPAY ==
[2023-04-23 09:21] LABS: Hemoglobin A1C% w Est Avg Glu 5.1 % (4.0-6.0)
== END ==
PROVIDERS: PCP Family Medicine; Referring Provider Family Medicine; Visit Provider Family Medicine
DX: E66.9 Obesity, unspecified (principal); I10 Essential (primary) hypertension
CPT/HCPCS: 36415; 83036

== ENCOUNTER 2023-04-23 16:01 | Emergency (ER) | payer OTHER, SELFPAY ==
[2023-04-23] VITALS (9 sets, daily range): BP systolic 125–150; BP diastolic 62–84; PULSE 68–80; RESP 16–20; TEMP 36.7–37.1; O2SAT 94–97; BMI 36.1
[2023-04-23 17:00] LABS: Add Manual Diff / Slide Review NO; Basophils Absolute Auto 100 /uL (0-100); Basophils Percent Auto 0.8 % (0-2); Eosinophils Absolute Auto 200 /uL (0-450); Eosinophils Percent Auto 1.5 % (2-4); Hematocrit 44.7 % (41-53); Hemoglobin 15.7 g/dL (13.5-17.5); Lymphocytes Absolute Auto 1900 /uL (1100-4500); Mean Corpuscular Hemoglobin 31.2 PG (26-34); Mean Corpuscular Volume 89.1 fL (80-100); Monocytes Absolute Auto 1000 /uL (0-900); Monocytes Percent Auto 9.2 % (3-14); Neutrophils Absolute Auto 7500 /uL (1500-7000); Neutrophils Percent Auto 70.5 % (50-75); Platelet Count 182 X10^3/uL (150-400); Red Blood Cell Count 5.02 X10^6/uL (4.5-5.9); Red Cell Distribution Width 12.9 % (11.6-14.8); White Blood Cell Count 10.7 X10^3/uL (4.5-11.0)
[2023-04-23 17:07] LABS: Alanine Aminotransferase 38 IU/L (<50); Albumin 4.4 g/dL (3.5-5.0); Albumin Globulin Ratio 1.6 (1.0-2.8); Alkaline Phosphatase 57 U/L (38-126); Aspartate Aminotransferase 27 IU/L (17-59); BUN Creatinine Ratio 13.9 (6-22); Bilirubin Total 0.9 mg/dL (0.2-1.3); Blood Urea Nitrogen 14 mg/dL (9-20); Carbon Dioxide 28 mmol/L (22-32); Chloride 104 mmol/L (98-107); Estimated Glomerular Filt Rate > 60 mL/min (>60); Globulin 2.8 g/dL (1.7-4.1); Glucose 99 mg/dL (70-100); HEMOLYSIS 17 (0-50); Lipase 39 U/L (23-300); Potassium 3.6 mmol/L (3.4-5.1); Sodium 139 mmol/L (137-145); Total Protein 7.2 g/dL (6.3-8.2)
[2023-04-24] VITALS: PULSE 66; O2SAT 93
--- NOTE | 2023-04-24 00:14 | DI.CT.S_ITS ---
PROCEDURE: CT ABDOMEN PELVIS W CON INDICATIONS: LLQ pain TECHNIQUE: After the administration of IV contrast, axial sections were acquired from the lung bases to the pubic symphysis. Coronal and sagittal reformats were performed. For radiation dose reduction, the following was used: automated exposure control, adjustment of mA and/or kV according to patient size. COMPARISON: [facility], CT, CT ABDOMEN PELVIS W CON, 11/24/2021, 17:38. FINDINGS: Image quality: Excellent. Lung bases: There is mild atelectasis in the lung bases bilaterally. Heart: Heart is normal in size. ABDOMEN: Liver: There is diffuse hypoattenuation of the liver consistent with fatty infiltration. Gallbladder: Within normal limits without calcified gallstones. Biliary ducts: No biliary ductal dilatation. Pancreas: Unremarkable. Spleen: Normal in size. Adrenal Glands: No adrenal nodules. Kidneys and Ureters: No hydronephrosis. There is an exophytic left renal cyst medially. Stomach and Bowel: Stomach and small bowel loops are normal in caliber and wall thickness. The appendix is normal. There is colonic diverticulosis with associated diverticular and segmental colonic wall thickening in the distal descending colon as well as pericolonic fat stranding and a small amount of free fluid in the left paracolic gutter. Findings are consistent with acute diverticulitis. No diverticular abscess or macroscopic free air. Ventral Wall: No hernia. Abdominal Nodes: No retroperitoneal or mesenteric adenopathy by size criteria. Vessels: Aorta and inferior vena cava are normal in size. PELVIS: Pelvic Organs: There is moderate enlargement of the prostate.. Bladder: Unremarkable. Pelvic Nodes: No enlarged lymph nodes. Miscellaneous: No inguinal hernias are seen. Bones: Visualized osseous structures demonstrate no suspicious focal lesions. IMPRESSION: 1. Acute diverticulitis of the descending colon without evidence of diverticular abscess or macroscopic free air. Dictated by: Elton Eaton M.D. on 04/24/2023 at 1:07 Approved by: Elton Eaton M.D. on 04/24/2023 at 1:11
--- NOTE | 2023-04-24 00:17 | ED_ITS ---
HPI - Abdominal Pain General Chief Complaint: Abdominal Pain Stated Complaint: DVT Time Seen by Provider: 04/23/23 23:38 Source: patient Mode of arrival: Ambulatory History of Present Illness HPI narrative: Patient 53-year-old male history of atrial fibrillation with an ablation presenting today with left lower quadrant pain. He reports this started yesterday at some time progressively getting little bit worse. No dizziness or lightheadedness. He reports that he was traveling on an airplane from [facility] and [address]. He denies chest pain shortness of breath palpitations or calf pain. He reports that this feels very similar to his previous episode of diverticulitis. He apparently was seen at walk-in clinic and sent to the ED to rule out DVT. Related Data Home Medications Medication Instructions Recorded Confirmed cholecalciferol (vitamin D3) 125 5,000 unit PO DAILY 02/03/18 01/01/23 mcg (5,000 unit) capsule magnesium oxide 500 mg tablet 500 mg PO DAILY AFIB 01/01/23 01/01/23 metoprolol tartrate 25 mg tablet 25 mg PO DAILY AFIB 01/01/23 01/01/23 Previous Rx's Medication Instructions Recorded irbesartan 300 See Rx Instructions .Route 11/26/22 mg-hydrochlorothiazide 12.5 mg .COMPLEX #90 tabs tablet butalbital 50 mg-acetaminophen 325 1 cap PO Q4H PRN pain #20 caps 01/01/23 mg-caffeine 40 mg-codeine 30 mg cap tamsulosin 0.4 mg capsule See Rx Instructions .Route 01/21/23 .COMPLEX #90 caps ciprofloxacin HCl 500 mg tablet 500 mg PO BID #14 tabs 04/24/23 (Cipro) metronidazole 500 mg tablet 500 mg PO Q8H 7 days #21 tabs 04/24/23 Allergies Allergy/AdvReac Type Severity Reaction Status Date / Time azithromycin [From Zithromax] Allergy Intermediate Rash Verified 01/01/23 10:35 doxycycline Allergy Intermediate Rash Verified 01/01/23 10:35 Penicillins Allergy Intermediate Rash Verified 01/01/23 10:35 Review of Systems Review of Systems ROS Unobtainable: All systems reviewed & are unremarkable except as noted in HPI and below Patient History Medical History Atrial fibrillation Essential hypertension Hyperlipidemia Migraine SVT (supraventricular tachycardia) Surgical History S/P wisdom tooth extraction Status post ablation of atrial fibrillation (~07/2021) Family History Father Diabetes mellitus Mother Diabetes mellitus Social History marital status: household members: spouse occupational status: employed ([employer]) Smoking Status: Former smoker alcohol intake: current (rare) substance use type: does not use Smoking Status: Former smoker alcohol intake frequency: a few times a month Substance Use Type: does not use Exam Initial Vital Signs Initial Vital Signs: Vital Signs Temperature 98.8 F 04/23/23 16:18 Pulse Rate 80 04/23/23 16:18 Respiratory Rate 16 04/23/23 16:18 Blood Pressure 147/84 H 04/23/23 16:18 Pulse Oximetry 97 04/23/23 16:18 Oxygen Delivery Method Room Air 04/23/23 16:18 GENERAL: Alert well-appearing 53-year-old male and in no acute distress. HEENT: Head atraumatic,EOMI, pupils reactive, face symmetric, moist mucous membranes CARDIOVASCULAR: Regular rate and rhythm without murmurs, rubs or gallops. RESPIRATORY: Breath sounds equal bilaterally, no wheezes rales or rhonchi. ABDOMEN: Soft, left lower quadrant pain no guarding or rebound : No CVA tenderness EXTREMITIES: Normal range of motion, no clubbing or edema. Neurovascularly i ntact NEUROLOGICAL: Alert and oriented x4. SKIN: Warm, dry, no laceration, no petechiae, no rashes or lesions. Course Orders Ordered: ED Orders 04/24/23 00:14 CT abdomen pelvis w con Stat Discontinued Medications Ciprofloxacin (Ciprofloxacin 250 Mg Tablet) 500 mg PO NOW ONE Stop: 04/24/23 01:44 Last Admin: 04/24/23 01:50 Dose: 500 mg Documented By: SANNA Ketorolac Tromethamine (Ketorolac 30 Mg/Ml Vial) 15 mg IV NOW ONE Stop: 04/24/23 00:15 Last Admin: 04/24/23 00:19 Dose: 15 mg Documented By: IVY Metronidazole (Metronidazole 500 Mg Tablet) 500 mg PO NOW ONE Stop: 04/24/23 01:44 Last Admin: 04/24/23 01:50 Dose: 500 mg Documented By: SANNA Ondansetron HCl (Ondansetron 4 Mg Odt) 4 mg PO NOW PRN PRN Reason: Nausea And Vomiting Ondansetron HCl (Ondansetron 4 Mg/2 Ml Inj) 4 mg IV NOW PRN PRN Reason: Nausea And Vomiting Last Admin: 04/24/23 00:20 Dose: 4 mg Documented By: IVY Vital Signs Vital signs: Vital Signs - 8 hr 04/23/23 21:30 04/23/23 21:30 04/23/23 22:00 Pulse Rate 68 Respiratory Rate Blood Pressure 127/68 131/66 Pulse Oximetry 94 04/23/23 22:00 04/23/23 22:30 04/23/23 22:30 Pulse Rate 74 74 Respiratory Rate 18 Blood Pressure 125/77 Pulse Oximetry 94 94 04/23/23 23:03 04/24/23 00:00 04/24/23 00:26 Pulse Rate 71 66 67 Respiratory Rate Blood Pressure Pulse Oximetry 96 93 95 04/24/23 00:26 04/24/23 01:52 Pulse Rate 77 Respiratory Rate 18 Blood Pressure 142/79 H 142/79 H Pulse Oximetry 94 MDM - Abdominal Pain Lab Data 04/23/23 16:45 04/23/23 16:45 Labs: Lab Results 04/23/23 04/23/23 Range/Units 16:45 16:45 WBC 10.7 (4.5-11.0) X10^3/uL RBC 5.02 (4.5-5.9) X10^6/uL Hgb 15.7 (13.5-17.5) g/dL Hct 44.7 (41-53) % MCV 89.1 (80-100) fL MCH 31.2 (26-34) PG MCHC 35.0 (30-36) % RDW 12.9 (11.6-14.8) % Plt Count 182 (150-400) X10^3/uL Neut % (Auto) 70.5 (50-75) % Lymph % (Auto) 18.0 L (25-40) % [place] % (Auto) 9.2 (3-14) % Eos % (Auto) 1.5 L (2-4) % Baso % (Auto) 0.8 (0-2) % Neut # (Auto) 7500 H (9795-2642) /uL Lymph # (Auto) 1900 (2548-9721) /uL [place] # (Auto) 1000 H (0-900) /uL Eos # (Auto) 200 (0-450) /uL Baso # (Auto) 100 (0-100) /uL Sodium 139 (137-145) mmol/L Potassium 3.6 (3.4-5.1) mmol/L Chloride 104 (98-107) mmol/L Carbon Dioxide 28 (22-32) mmol/L BUN 14 (9-20) mg/dL Creatinine 1.01 (0.66-1.25) mg/dL Estimated GFR > 60 (>60) mL/min BUN/Creatinine Ratio 13.9 (6-22) Glucose 99 (70-100) mg/dL Calcium 9.0 (8.4-10.2) mg/dL Total Bilirubin 0.9 (0.2-1.3) mg/dL AST 27 (17-59) IU/L ALT 38 (<50) IU/L Alkaline Phosphatase 57 (38-126) U/L Total Protein 7.2 (6.3-8.2) g/dL Albumin 4.4 (3.5-5.0) g/dL Globulin 2.8 (1.7-4.1) g/dL Albumin/Globulin Ratio 1.6 (1.0-2.8) Lipase 39 (23-300) U/L Point of care testing: Urine Dip Bedside Urine Glucose Negative Bedside Urine Bilirubin - Negative Bedside Urine Ketone - Negative Urine Specific [place] 1.000 Bedside Urine Occult Blood - Negative Bedside Urine pH 6.0 Bedside Urine Protein - Negative Bedside Urine Urobilinogen - Negative Bedside Urine Nitrite - Negative Bedside Urine Leukocytes - Negative Esterase Imaging Data CT scan - abdomen/pelvis: Radiologist's Impression: PROCEDURE:? CT ABDOMEN PELVIS W CON ? INDICATIONS:? LLQ pain ? TECHNIQUE:? After the administration of IV contrast, axial sections were acquired from the lung bases to the pubic symphysis.? Coronal and sagittal reformats were performed.? For r adiation dose reduction, the following was used:? automated exposure control, adjustment of mA and/or kV according to patient size. ? COMPARISON:? [facility], CT, CT ABDOMEN PELVIS W CON, 11/24/2021, 17:38. ? FINDINGS:? Image quality:? Excellent.? ? Lung bases:? There is mild atelectasis in the lung bases bilaterally.? ? Heart:? Heart is normal in size. ? ? ABDOMEN: Liver:? There is diffuse hypoattenuation of the liver consistent with fatty infiltration. Gallbladder:? Within normal limits without calcified gallstones.? ? Biliary ducts:? No biliary ductal dilatation.? ? Pancreas:? Unremarkable.? ? Spleen:? Normal in size.? ? Adrenal Glands:? No adrenal nodules.? ? Kidneys and Ureters:? No hydronephrosis.? There is an exophytic left renal cyst medially. ?? ? Stomach and Bowel:? Stomach and small bowel loops are normal in caliber and wall thickness.? The appendix is normal.? There is colonic diverticulosis with associated diverticular and segmental colonic wall thickening in the distal descending colon as well as pericolonic fat stranding and a small amount of free fluid in the left paracolic gutter.? Findings are consistent with acute diverticulitis.? No diverticular abscess or macroscopic free air. ? Ventral Wall: ? No hernia.? Abdominal Nodes:? No retroperitoneal or mesenteric adenopathy by size criteria.? Vessels:? Aorta and inferior vena cava are normal in size.? ? PELVIS: Pelvic Organs:? There is moderate enlargement of the prostate..? ? Bladder:? Unremarkable.? ? Pelvic Nodes: No enlarged lymph nodes.? Miscellaneous: No inguinal hernias are seen. ? ? ? Bones:? Visualized osseous structures demonstrate no suspicious focal lesions. ? IMPRESSION:? ? 1. Acute diverticulitis of the descending colon without evidence of diverticular abscess or macroscopic free air. ? ? Dictated by: Elton Eaton M.D. on 04/24/2023 at 1:07 ? ? ECG Data Interpretation: Sinus rhythm rate 71 RI interval 186 QRS [address] changes no T-wave inversions MDM Narrative Medical decision making narrative: Patient 53-year-old male history of atrial fibrillation with an ablation not on anticoagulation presenting with left lower quadrant pain. He does have a history of diverticulitis this is most likely diverticulitis. Other possibil ities include mesenteric ischemia however pain is not out of proportion. He is not having any calf pain chest pain or shortness of breath so despite recent long travel unlikely to be PE or DVT. Blood work has been reviewed and is overall reassuring with a significant leukocytosis or electrolyte abnormality. CT confirms uncomplicated diverticulitis. Previously he was treated with Bactrim Flagyl secondary to being on sotalol and prolonged QT however he is no longer on sotalol and only taking metoprolol. Prescribed Cipro and Flagyl today. Discharge Plan Departure Patient Disposition: Home Clinical Impression: Diverticulitis Instructions: DI for Diverticulitis Activity Restrictions/Additional Instructions: *You have been diagnosed with diverticulitis *What to do: At this time try clear liquids it is advanced diet as tolerated *Continue to take medications as directed--> [facility] Flagyl 500 mg 3 times a day for 7 days Cipro 500 mg twice a day for 7 days *Follow up with your primary care provider in 2-3 days or call [phone] *Return to ER if you should have increasing pain bloody stool fever or any new, worsening or concerning symptoms Prescriptions: New ciprofloxacin HCl [Cipro] 500 mg tablet 500 mg PO BID Qty: 14 0RF metronidazole 500 mg tablet 500 mg PO Q8H 7 Days Qty: 21 0RF No Action irbesartan-hydrochlorothiazide 300-12.5 mg tablet See Rx Instructions .ROUTE .COMPLEX Qty: 90 3RF Dose Instruction: TAKE 1 TABLET BY MOUTH DAILY Rx Instructions: TAKE 1 TABLET BY MOUTH DAILY tamsulosin 0.4 mg capsule See Rx Instructions .ROUTE .COMPLEX Qty: 90 3RF Dose Instruction: TAKE 1 CAPSULE BY MOUTH AT BEDTIME Rx Instructions: TAKE 1 CAPSULE BY MOUTH AT BEDTIME metoprolol tartrate 25 mg tablet 25 mg PO DAILY Patient Comments: Take as necessary if heart feels like it is racing. magnesium oxide 500 mg tablet 500 mg PO DAILY sjkzvnlwve-amehmucjfa-mkt-cod 57-438-09-30 mg capsule 1 cap PO Q4H PRN (Reason: pain) Qty: 20 3RF cholecalciferol (vitamin D3) 5,000 unit capsule 5,000 unit PO DAILY Referrals: Kylee Davies DO [Primary Care Provider] - Stand Alone Forms: Patient Portal/API
[2023-04-24] MEDS: KETOROLAC 30 MG/ML VIAL 15 MG IV (00:19)
[2023-04-24] MEDS: ONDANSETRON 4 MG/2 ML INJ IV (00:20)
[2023-04-24 00:26] VITALS: BP 142/79; PULSE 67; O2SAT 95
[2023-04-24] MEDS: CIPROFLOXACIN 250 MG TABLET 500 MG PO (01:50)
[2023-04-24] MEDS: metroNIDAZOLE 500 MG TABLET PO (01:50)
[2023-04-24 01:52] VITALS: BP 142/79; PULSE 77; RESP 18; O2SAT 94
== END 2023-04-24 02:00 | disposition home or self-care (01) ==
PROVIDERS: Emergency Medicine; Emergency Provider Emergency Medicine; PCP Family Medicine
DX: K57.32 Diverticulitis of large intestine without perforation or abscess without bleeding (principal); E66.9 Obesity, unspecified; I10 Essential (primary) hypertension
CPT/HCPCS: 36415; 74177; 80053; 81003; 83036; 83690; 85025; 93005; 93010; 96374; 96375; 99284; J1885; J2405; Q9967

== ENCOUNTER 2024-05-14 13:11 | Emergency (ER) | payer OTHER, SELFPAY ==
[2024-05-14 13:29] VITALS: BP 132/75; PULSE 66; RESP 16; TEMP 37; O2SAT 98; BMI 34.9
--- NOTE | 2024-05-14 13:48 | ED.RECABL ---
HPI - Recheck/Abnormal Lab/Rx <Crissy Simmons PA-C - Last Filed: 05/14/24 14:17> General Chief Complaint: Recheck/Abnormal Lab/Rx Stated Complaint: diverticulitis flare-up Time Seen by Provider: 05/14/24 13:46 Source: patient Mode of arrival: Ambulatory History of Present Illness HPI narrative: Patient is a very pleasant 54-year-old male who presents to the emergency room department today with some mild left lower quadrant discomfort that started several days ago. Currently the patient does not have any discomfort or pain. Patient has a longstanding history of recurrent diverticulitis. He has noticed an increase in the episodes since starting semaglutide. Patient has recently lost 30 lb since starting the semaglutide 3 months ago. This will be his 3rd bout of a signs and symptoms associated with onset of acute diverticulitis. However, the patient is here presenting with vague symptoms started several days ago, and now no symptoms. However, the patient is getting ready to leave and go on a business trip to [facility]. He is concerned that he is going to be on a flight and have a flare or have signs symptoms of worsening or even onset of signs and symptoms of diverticulitis, on a plane. Related Data Home Medications Medication Instructions Recorded Confirmed cholecalciferol (vitamin D3) 125 5,000 unit PO DAILY 02/03/18 04/20/24 mcg (5,000 unit) capsule magnesium oxide 500 mg PO DAILY AFIB 01/01/23 04/20/24 metoprolol succinate 25 mg 25 mg PO DAILY BP and afib 04/24/23 04/20/24 tablet,extended release 24 hr Previous Rx's Medication Instructions Recorded hydrocortisone 2.5 % topical cream 1 applic [place] QD-BID PRN 05/07/23 with perineal applicator pain/itching #30 grams (Anusol-HC) butalbital 50 mg-acetaminophen 325 1 cap PO Q4H PRN pain #20 caps 10/23/23 mg-caffeine 40 mg-codeine 30 mg cap sumatriptan succinate 50 mg tablet See Rx Instructions PO .COMPLEX 10/23/23 (Imitrex) #10 tabs irbesartan 300 See Rx Instructions .Route 11/05/23 mg-hydrochlorothiazide 12.5 mg .COMPLEX #90 tabs tablet Subcutaneous Supplies Kit #12 ea 12/19/23 semaglutide See Rx Instructions SUBCUT .weekly 12/19/23 #6 mL tamsulosin 0.4 mg capsule See Rx Instructions .Route 01/10/24 .COMPLEX #90 caps ciprofloxacin HCl 500 mg tablet 500 mg PO Q12H #14 tabs 05/14/24 metronidazole 500 mg tablet 500 mg PO BID 7 days #14 tabs 05/14/24 Allergies Allergy/AdvReac Type Severity Reaction Status Date / Time azithromycin [From Zithromax] Allergy Intermediate Rash Verified 04/20/24 12:37 doxycycline Allergy Intermediate Rash Verified 04/20/24 12:37 Penicillins Allergy Intermediate Rash Verified 04/20/24 12:37 Review of Systems <Crissy Simmons PA-C - Last Filed: 05/14/24 14:17> Review of Systems Narrative: Negative except as above Gastrointestinal Comments: History of diverticulitis, going to be traveling, has had some sensations of left lower quadrant discomfort were that he is going to have a flare while his visiting [place] Patient History <Crissy Simmons PA-C - Last Filed: 05/14/24 14:17> Medical History FRIDA on CPAP Hyperlipidemia Migraine Atrial fibrillation SVT (supraventricular tachycardia) Essential hypertension Surgical History Status post ablation of atrial fibrillation (~07/2021) S/P wisdom tooth extraction Family History Father Diabetes mellitus Mother Diabetes mellitus Social History marital status: household members: spouse occupational status: employed ([employer] for [employer]) Smoking Status: Former smoker alcohol intake: current (rare) substance use type: does not use Smoking Status: Former smoker alcohol intake frequency: a few times a month Substance Use Type: does not use Exam <Crissy Simmons PA-C - Last Filed: 05/14/24 14:17> Initial Vital Signs Initial Vital Signs: Vital Signs Temperature 98.6 F 05/14/24 13:29 Pulse Rate 66 05/14/24 13:29 Respiratory Rate 16 05/14/24 13:29 Blood Pressure 132/75 05/14/24 13:29 Pulse Oximetry 98 05/14/24 13:29 Oxygen Delivery Method Room Air 05/14/24 13:29 Const General: cooperative, healthy appearing, comfortable, well developed, well groomed, No acute distress and No in distress Eyes Pupils: PERRL EOM: EOM intact bilaterally Resp Auscultation: clear to auscultation bilaterally, no bronchovesicular breath sounds, no crackles, no rales, no rhonchi and no wheezes Cardio Rate: regular rate Rhythm: regular rhythm Heart Sounds: S1 normal and S2 normal GI Palpation: soft, No firm, No guarding, No hepatomegaly, No mass, No rigid and No tender Skin Other: Warm pink and dry Neuro General: patient alert, patient awake, patient oriented x3, oriented and gait normal Cranial Nerves: CN's II-XI intact bilaterally Cognition: normal cognition Speech: speech normal Gait: normal gait Motor: muscle tone normal throughout and strength 5/5 throughout Extrem Other: Range of motion, strength, pulses, cap refill preserved in the upper and lower extremities Psych Appearance: grossly normal and well kempt Mental Status: mental status grossly normal Speech and Movement: speech and movement normal Mood: congruent mood Affect: normal affect Attitude: cooperative Thought Process: normal Thought Content: normal Judgment: judgment good <Bouchra Whitt DO - Last Filed: 05/15/24 10:22> Initial Vital Signs Initial Vital Signs: Vital Signs Temperature 98.6 F 05/14/24 13:29 Pulse Rate 66 05/14/24 13:29 Respiratory Rate 16 05/14/24 13:29 Blood Pressure 132/75 05/14/24 13:29 Pulse Oximetry 98 05/14/24 13:29 Oxygen Delivery Method Room Air 05/14/24 13:29 Course <Crissy Simmons PA-C - Last Filed: 05/14/24 14:17> Vital Signs Vital signs: Vital Signs - 8 hr 05/14/24 13:29 Temperature 98.6 F Pulse Rate 66 Respiratory Rate 16 Blood Pressure 132/75 Pulse Oximetry 98 Oxygen Delivery Method Room Air Reviewed <Bouchra Whitt DO - Last Filed: 05/15/24 10:22> Vital Signs Vital signs: Vital Signs - 8 hr 05/14/24 13:29 Temperature 98.6 F Pulse Rate 66 Respiratory Rate 16 Blood Pressure 132/75 Pulse Oximetry 98 Oxygen Delivery Method Room Air MDM - Recheck/Abnormal Lab/Rx <Crissy Simmons PA-C - Last Filed: 05/14/24 14:17> [facility] Narrative Medical decision making narrative: Patient is a pleasant 54-year-old male presents to the emergency room department with concerns that he is possibly going to have a flare of his diverticulitis while he has on a business trip to [facility]. Patient has a history of diverticulitis he has had kind of some odd sensations down the left lower quadrant. Currently does not have any discomfort or pain. Currently his vital signs are stable. Currently not tachypneic, tachycardic, or have a fever. Patient here requesting antibiotic therapy to take with him in case he has a flare wound his trip. If he does not have a flare he will not use antibiotics if the symptoms worsen intensity the patient knows how to take care of his flare. Will take antibiotics as appropriate. Antibiotics prescribed Currently at this time the patient has decided against A workup. Differential diagnosis patient is here for medications for travel with a longstanding history of recurrent diverticulitis. Discharge Plan Departure Patient Disposition: Home Clinical Impression: Diverticulitis Instructions: DI for Diverticulitis Activity Restrictions/Additional Instructions: Please take the medications with you when you go on her trip. Please keep him just in case you get worse. Please remember to stay hydrated. [place] diet if he can possibly do that. Signs and symptoms to be seen in the emergency room department in [facility] obviously high fevers, severe abdominal pain, severe nausea vomiting diarrhea and can not keep anything down. Prescriptions have been sent to the pharmacy. Please follow up with your primary care doctor. Return to the emergency department as needed. Prescriptions: New ciprofloxacin HCl 500 mg tablet 500 mg PO Q12H Qty: 14 0RF metronidazole 500 mg tablet 500 mg PO BID 7 Days Qty: 14 0RF No Action hydrocortisone [Anusol-HC] 2.5 % cream with perineal applicator 1 applic [place] QD-BID PRN (Reason: pain/itching) Qty: 30 5RF irbesartan-hydrochlorothiazide 300-12.5 mg tablet See Rx Instructions .ROUTE .COMPLEX Qty: 90 3RF Dose Instruction: TAKE 1 TABLET BY MOUTH DAILY Rx Instructions: TAKE 1 TABLET BY MOUTH DAILY semaglutide 1 mg/mL See Rx Instructions SUBCUT .weekly Qty: 6 5RF Rx Instructions: 0.25 mg subcut weekly x 4 weeks, then 0.5 mg subcut weekly (DME) Subcutaneous Supplies Kit See Rx Instructions .ROUTE .MEDSUPPLY Qty: 12 3RF Rx Instructions: As directed with semaglutide tamsulosin 0.4 mg capsule See Rx Instructions .ROUTE .COMPLEX Qty: 90 3RF Dose Instruction: TAKE 1 CAPSULE BY MOUTH AT BEDTIME Rx Instructions: TAKE 1 CAPSULE BY MOUTH AT BEDTIME magnesium oxide 500 mg tablet 500 mg PO DAILY cholecalciferol (vitamin D3) 5,000 unit capsule 5,000 unit PO DAILY metoprolol succinate 25 mg tablet extended release 24 hr 25 mg PO DAILY eyiofafulr-csrimgrbxe-xev-cod [id number] mg capsule 1 cap PO Q4H PRN (Reason: pain) Qty: 20 5RF sumatriptan succinate [Imitrex] 50 mg tablet See Rx Instructions PO .COMPLEX Qty: 10 11RF Rx Instructions: take 1 tab at onset of headache; if no relief may repeat 1 tab after at least 2 hrs; max = 4 tabs/24 hr PO Referrals: Kylee Davies DO [Primary Care Provider] - Stand Alone Forms: Patient Portal/API ED Sign-out <Bouchra Whitt DO - Last Filed: 05/15/24 10:22> Cosign ED Attending Cosmaryature Attestation: I was available for consultation.
== END 2024-05-14 14:03 | disposition home or self-care (01) ==
PROVIDERS: Emergency Provider Physician Assistant; PCP Family Medicine
DX: K57.92 Diverticulitis of intestine, part unspecified, without perforation or abscess without bleeding (principal)
CPT/HCPCS: 99281

== ENCOUNTER → 2024-05-18 10:34 | Outpatient (CLI) | payer OTHER, SELFPAY | PROVIDERS: PCP Family Medicine; Visit Provider Physician Assistant Surgical | DX: L02.91 Cutaneous abscess, unspecified (principal) | CPT/HCPCS: 87070; 87075; 87077; 87147; 87186; 87205 ==

== ENCOUNTER → 2024-05-22 09:09 | Outpatient (CLI) | payer OTHER, SELFPAY ==
[2024-05-22 10:13] LABS: Hemoglobin A1C% w Est Avg Glu 4.9 % (4.0-6.0)
[2024-05-22 10:30] LABS: Alanine Aminotransferase 36 IU/L (<50); Albumin 4.3 g/dL (3.5-5.0); Albumin Globulin Ratio 1.9 (1.0-2.8); Alkaline Phosphatase 66 U/L (38-126); Aspartate Aminotransferase 33 IU/L (17-59); BUN Creatinine Ratio 20.7 (6-22); Bilirubin Total 0.8 mg/dL (0.2-1.3); Blood Urea Nitrogen 17 mg/dL (9-20); Calcium 9.7 mg/dL (8.4-10.2); Carbon Dioxide 26 mmol/L (22-32); Chloride 106 mmol/L (98-107); Cholesterol 175 mg/dL (140-199); Estimated Glomerular Filt Rate > 60 mL/min (>60); Globulin 2.3 g/dL (1.7-4.1); Glucose 117 mg/dL (70-100); HDL Cholesterol 40 mg/dL (40-60); HEMOLYSIS < 15 (0-50); LDL Cholesterol Calculated 100 mg/dL (<100); Potassium 4.3 mmol/L (3.4-5.1); Sodium 138 mmol/L (137-145); Total Protein 6.6 g/dL (6.3-8.2); Triglycerides 173 mg/dL (35-150)
[2024-05-22 10:59] LABS: Prostate Specific Antigen Scrn 3.95 ng/mL (0.1-4.0)
== END ==
PROVIDERS: PCP Family Medicine; Referring Provider Family Medicine; Visit Provider Family Medicine
DX: E78.5 Hyperlipidemia, unspecified (principal); I10 Essential (primary) hypertension; R73.01 Impaired fasting glucose; Z12.5 Encounter for screening for malignant neoplasm of prostate
CPT/HCPCS: 36415; 80053; 80061; 83036; G0103

== ENCOUNTER 2024-07-09 13:00 | Day surgery (SDC) | payer OTHER, SELFPAY ==
--- NOTE | 2024-07-09 | PATH_ITS ---
[facility] Accession Number: [id number] No. of containers..03 Tissue . 01 Material submitted: . PART A: colon - ASCENDING COLON POLYP PART B: colon - DESCENDING COLON POLYP PART C: rectum - RECTAL POLYP . 01 Diagnosis: A. ASCENDING COLON, POLYPECTOMY: Tubular adenoma. - B. DESCENDING COLON, POLYPECTOMY: Tubular adenoma. - C. RECTUM, POLYPECTOMY: Hyperplastic polyp. [facility] 07/13/2024 1710 Local . 01 Electronically signed: . Rocky Lorenzo MD, Pathologist NPI- [id number] . 01 Gross description: . Part A: ASCENDING COLON POLYP: Received in formalin is 1 fragment(s) of rogers, soft tissue measuring 0.5 x 0.3 x 0.3 cm submitted entirely in 1 cassette(s) Part B: DESCENDING COLON POLYP: Received in formalin is 1 fragment(s) of rogers, soft tissue measuring 0.8 x 0.3 x 0.3 cm submitted entirely in 1 cassette(s) Part C: RECTAL POLYP: Received in formalin is 1 fragment(s) of rogers, soft tissue measuring 0.4 x 0.4 x 0.4 cm submitted entirely in 1 cassette(s) /PORSHA 07/10/20241955 Local . 01 Pathologist provided ICD-10: Z12.11, Z86.0100 . 01 CPT . 777219, 240719, [id number] Specimen Comment: A courtesy copy of this report has been sent to [phone] Performed at: [address] [id number], [place], [place] [id number] MD Elton Awan MD Phone: [phone]
[2024-07-09 13:20] VITALS: BP 128/81; PULSE 73; RESP 16; TEMP 36.4; O2SAT 98
--- NOTE | 2024-07-09 14:04 | P.HP_ITS ---
History of Present Illness History of Present Illness Date Patient Seen: 07/09/24 Time Patient Seen: 14:04 Chief complaint: Colonoscopy Narrative: John is a 54-year-old man here for colonoscopy. His last one was in approximately 2019 and he had polyps. [facility] Medical History FRIDA on CPAP Hyperlipidemia Migraine Atrial fibrillation SVT (supraventricular tachycardia) Essential hypertension Surgical History Status post ablation of atrial fibrillation (~07/2021) S/P wisdom tooth extraction Family History Father Diabetes mellitus Mother Diabetes mellitus Social History marital status: household members: spouse occupational status: employed ([employer]) Smoking Status: Former smoker alcohol intake: current substance use type: does not use Meds Home Medications and Allergies Home Medications Medication Instructions Recorded Confirmed Type cholecalciferol (vitamin D3) 125 5,000 unit PO DAILY 02/03/18 05/25/24 History mcg (5,000 unit) capsule magnesium oxide 500 mg PO DAILY AFIB 01/01/23 07/09/24 History metoprolol succinate 25 mg 25 mg PO DAILY BP and afib 04/24/23 07/09/24 History tablet,extended release 24 hr hydrocortisone 2.5 % topical cream 1 applic NM QD-BID PRN 05/07/23 05/25/24 Rx with perineal applicator pain/itching #30 grams (Anusol-HC) butalbital 50 mg-acetaminophen 325 1 cap PO Q4H PRN pain #20 caps 10/23/23 07/09/24 Rx mg-caffeine 40 mg-codeine 30 mg cap sumatriptan succinate 50 mg tablet See Rx Instructions PO .COMPLEX 10/23/23 05/25/24 Rx (Imitrex) #10 tabs irbesartan 300 See Rx Instructions .Route 11/05/23 07/09/24 Rx mg-hydrochlorothiazide 12.5 mg .COMPLEX #90 tabs tablet Subcutaneous Supplies Kit #12 ea 12/19/23 05/25/24 Rx semaglutide See Rx Instructions SUBCUT .weekly 12/19/23 07/08/24 Rx #6 mL tamsulosin 0.4 mg capsule See Rx Instructions .Route 01/10/24 07/09/24 Rx .COMPLEX #90 caps famotidine 20 mg tablet (Pepcid) 20 mg PO BID #60 tabs 05/25/24 07/09/24 Rx sodium,potassium,mag sulfates 17.5 See Rx Instructions PO .COMPLEX 06/08/24 Rx gram-3.13 gram-1.6 gram oral soln #354 mL (Suprep Bowel Prep Kit) sumatriptan succinate 50 mg tablet mg PO PRN PRN head ache 07/09/24 History Allergies Allergy/AdvReac Type Severity Reaction Status Date / Time azithromycin [From Zithromax] Allergy Intermediate Rash Verified 07/09/24 13:12 doxycycline Allergy Intermediate Rash Verified 07/09/24 13:12 Penicillins Allergy Intermediate Rash Verified 07/09/24 13:12 Exam Vital Signs (past 8 hours): - 07/09/24 13:20 Temperature 97.6 F Pulse Rate 73 Respiratory Rate 16 Blood Pressure 128/81 Pulse Oximetry 98 Oxygen Delivery Method Room Air Oxygen Delivery Method Room Air Const General: No acute distress Assessment & Plan Assessment and plan (1) History of colon polyps: Status: Acute Plan Colonoscopy Time-Based Coding :: [TOTAL MINUTES] spent with patient and on the chart (including review of chart, obtaining history, exam, reviewing outside data, placing orders, documenting exam and treatment plan, and counseling patient) on [DATE].
[2024-07-09 14:36] VITALS: BP 108/65; PULSE 62; RESP 14; TEMP 36.6; O2SAT 96
--- NOTE | 2024-07-09 14:38 | P.OP.COLON_ITS ---
Operative Date/Time/Diagnoses Date of procedure: 07/09/24 Time of procedure: 14:38 Pre-op diagnosis: Colon cancer screening Post-op diagnosis: same Procedure & Clinicians Study performed: Colonoscopy Same procedure as scheduled: Yes Surgeon: Bernard Arnold Procedure Notes Procedure in detail: Surgeon: Bernard Arnold MD Anesthesia: Senia Stiles CRNA Procedure: The patient was brought to the endoscopy suite, placed in left lateral decubitus position. The patient was connected to monitoring devices. A time-out was performed. Sedation was administered. Once the patient was adequately sedated, a digital rectal exam was performed and was normal. The scope was then inserted and advanced to the cecum where the appendiceal orifice was identified and photographed. The scope was then slowly withdrawn over greater than 6 minutes. The mucosa was thoroughly inspected. There was p andiverticulosis. There was a 5 mm polyp in the ascending colon removed with a cold snare. Was a 5 mm polyp in the descending colon removed with a cold snare. There was a 7 mm polyp rectum removed with a cold snare. The scope was retroflexed in the rectum. No other abnormalities were identified. The scope was straightened and removed. The patient was awakened and brought to recovery. Scope withdrawal time: 8 minutes Sedation time: 22 minutes EBL: 2 mL Findings: Pandiverticulosis and a 5 mm polyp in the ascending colon, a 5 mm polyp descending and a 7 mm polyp in the rectum Post-procedure Disposition: PACU
[2024-07-09 14:41] VITALS: BP 110/60; PULSE 66; RESP 17; O2SAT 94
[2024-07-09 14:45] VITALS: BP 110/65; PULSE 59; RESP 12; TEMP 36.6; O2SAT 96
== END 2024-07-09 15:06 | disposition home or self-care (01) ==
PROVIDERS: PCP Family Medicine; Referring Provider Surgery; Visit Provider Surgery
PROC: 0DJD8ZZ Inspection of Lower Intestinal Tract, Via Natural or Artificial Opening Endoscopic (ICD-10-PCS; CPT 45378; principal; 2024-07-09 14:15)
DX: Z12.11 Encounter for screening for malignant neoplasm of colon (principal); Z86.0100 Personal history of colon polyps, unspecified; K57.30 Diverticulosis of large intestine without perforation or abscess without bleeding; D12.2 Benign neoplasm of ascending colon; D12.4 Benign neoplasm of descending colon; K62.1 Rectal polyp
CPT/HCPCS: 45385; J2704

== ENCOUNTER 2024-10-03 10:24 | Emergency (ER) | payer OTHER, SELFPAY ==
[2024-10-03 10:25] VITALS: BP 144/84; PULSE 87; RESP 14; TEMP 36.6; O2SAT 99; BMI 35.9
[2024-10-03 10:29] VITALS: BP 144/84; PULSE 78; O2SAT 99
[2024-10-03 10:30] VITALS: BP 139/79; PULSE 79; O2SAT 99
--- NOTE | 2024-10-03 10:30 | EKG_ITS ---
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
[2024-10-03 10:50] LABS: Add Manual Diff / Slide Review NO; Basophils Absolute Auto 100 /uL (0-100); Basophils Percent Auto 1.1 % (0-2); Eosinophils Absolute Auto 100 /uL (0-450); Hematocrit 48.3 % (41-53); Hemoglobin 16.7 g/dL (13.5-17.5); Lymphocytes Absolute Auto 1600 /uL (1100-4500); Lymphocytes Percent Auto 24.3 % (25-40); Mean Corpuscular HGB Conc 34.5 % (30-36); Mean Corpuscular Hemoglobin 31.4 PG (26-34); Mean Corpuscular Volume 90.9 fL (80-100); Monocytes Absolute Auto 500 /uL (0-900); Monocytes Percent Auto 8.1 % (3-14); Neutrophils Absolute Auto 4200 /uL (1500-7000); Neutrophils Percent Auto 64.5 % (50-75); Platelet Count 212 X10^3/uL (150-400); Red Blood Cell Count 5.31 X10^6/uL (4.5-5.9); Red Cell Distribution Width 13.2 % (11.6-14.8); White Blood Cell Count 6.5 X10^3/uL (4.5-11.0)
[2024-10-03 10:58] LABS: Alanine Aminotransferase 52 IU/L (<50); Albumin 4.7 g/dL (3.5-5.0); Albumin Globulin Ratio 1.7 (1.0-2.8); Alkaline Phosphatase 56 U/L (38-126); Aspartate Aminotransferase 41 IU/L (17-59); BUN Creatinine Ratio 10.2 (6-22); Bilirubin Total 1.3 mg/dL (0.2-1.3); Blood Urea Nitrogen 10 mg/dL (9-20); Calcium 9.4 mg/dL (8.4-10.2); Carbon Dioxide 29 mmol/L (22-32); Chloride 104 mmol/L (98-107); Estimated Glomerular Filt Rate > 60 mL/min (>60); Globulin 2.7 g/dL (1.7-4.1); Glucose 122 mg/dL (70-100); HEMOLYSIS < 15 (0-50); Lipase 54 U/L (23-300); Sodium 139 mmol/L (137-145); Total Protein 7.4 g/dL (6.3-8.2)
[2024-10-03 11:24] VITALS: BP 138/76; PULSE 74; RESP 18; O2SAT 98
--- NOTE | 2024-10-03 11:58 | ED_ITS ---
HPI - Abdominal Pain General Chief Complaint: Abdominal Pain Stated Complaint: diverticulitis Time Seen by Provider: 10/03/24 11:28 Source: patient Mode of arrival: Ambulatory History of Present Illness HPI narrative: Patient is a 54-year-old male history of hypertension hyperlipidemia atrial fibrillation presenting to day with left lower quadrant pain. He reports that he has a history of diverticulitis he had a colonoscopy weeks ago his last flare was in April. Reports that if he eats oatmeal every day he does not have any diverticulitis problems. However he missed his oatmeal this week and now is having increased pain. Denies any fever or bloody stool. No nausea or vomiting. This is in the same place as all of his other previous diverticulitis flares Related Data Home Medications Medication Instructions Recorded Confirmed cholecalciferol (vitamin D3) 125 5,000 unit PO DAILY 02/03/18 05/25/24 mcg (5,000 unit) capsule magnesium oxide 500 mg PO DAILY AFIB 01/01/23 07/09/24 metoprolol succinate 25 mg 25 mg PO DAILY BP and afib 04/24/23 07/09/24 tablet,extended release 24 hr sumatriptan succinate 50 mg tablet mg PO PRN PRN head ache 07/09/24 Previous Rx's Medication Instructions Recorded hydrocortisone 2.5 % topical cream 1 applic UT QD-BID PRN 05/07/23 with perineal applicator pain/itching #30 grams (Anusol-HC) sumatriptan succinate 50 mg tablet See Rx Instructions PO .COMPLEX 10/23/23 (Imitrex) #10 tabs irbesartan 300 See Rx Instructions .Route 11/05/23 mg-hydrochlorothiazide 12.5 mg .COMPLEX #90 tabs tablet Subcutaneous Supplies Kit #12 ea 12/19/23 semaglutide See Rx Instructions SUBCUT .weekly 12/19/23 #6 mL tamsulosin 0.4 mg capsule See Rx Instructions .Route 01/10/24 .COMPLEX #90 caps famotidine 20 mg tablet (Pepcid) 20 mg PO BID #60 tabs 05/25/24 butalbital 50 mg-acetaminophen 325 1 cap PO Q4H PRN pain #20 caps 08/28/24 mg-caffeine 40 mg-codeine 30 mg cap cefdinir 300 mg capsule 300 mg PO Q12H #20 caps 10/03/24 metronidazole 500 mg tablet 500 mg PO Q8H 10 days #30 tabs 10/03/24 Allergies Allergy/AdvReac Type Severity Reaction Status Date / Time azithromycin [From Zithromax] Allergy Intermediate Rash Verified 10/03/24 10:30 doxycycline Allergy Intermediate Rash Verified 10/03/24 10:30 Penicillins Allergy Intermediate Rash Verified 10/03/24 10:30 Patient History Medical History FRIDA on CPAP Hyperlipidemia Migraine Atrial fibrillation SVT (supraventricular tachycardia) Essential hypertension Surgical History Status post ablation of atrial fibrillation (~07/2021) S/P wisdom tooth extraction Family History Father Diabetes mellitus Mother Diabetes mellitus Social History marital status: household members: spouse occupational status: employed ([employer]) Smoking Status: Former smoker alcohol intake: current substance use type: does not use Smoking Status: Former smoker alcohol intake frequency: a few times a month Exam Initial Vital Signs Initial Vital Signs: Vital Signs Temperature 97.9 F 10/03/24 10:25 Pulse Rate 87 10/03/24 10:25 Respiratory Rate 14 10/03/24 10:25 Blood Pressure 144/84 H 10/03/24 10:25 Pulse Oximetry 99 10/03/24 10:25 Oxygen Delivery Method Room Air 10/03/24 10:25 Course Orders Ordered: ED Orders 10/03/24 10:30 EKG-12 Lead Stat 10/03/24 10:36 Complete Blood Count AUTO DIFF Stat Comprehensive Metabolic Panel Stat Lipase Stat Discontinued Medications Cefdinir (Cefdinir 300 Mg Capsule) 300 mg PO NOW ONE Stop: 10/03/24 11:59 Last Admin: 10/03/24 12:06 Dose: 300 mg Documented By: CHRISTIE Metronidazole (Metronidazole 500 Mg Tablet) 500 mg PO NOW ONE Stop: 10/03/24 11:59 Last Admin: 10/03/24 12:06 Dose: 500 mg Documented By: CHRISTIE Ondansetron HCl (Ondansetron 4 Mg/2 Ml Inj) 4 mg IV NOW PRN PRN Reason: Nausea And Vomiting Ondansetron HCl (Ondansetron 4 Mg Odt) 4 mg PO NOW PRN PRN Reason: Nausea And Vomiting Vital Signs Vital signs: Vital Signs - 8 hr 10/03/24 10:25 10/03/24 10:29 10/03/24 10:29 Temperature 97.9 F Pulse Rate 87 78 Respiratory Rate 14 Blood Pressure 144/84 H 144/84 H Pulse Oximetry 99 99 Oxygen Delivery Method Room Air 10/03/24 10:29 10/03/24 10:30 10/03/24 10:30 Temperature Pulse Rate 79 Respiratory Rate Blood Pressure 144/84 H 139/79 Pulse Oximetry 99 Oxygen Delivery Method 10/03/24 11:24 10/03/24 12:25 Temperature Pulse Rate 74 80 Respiratory Rate 18 Blood Pressure 138/76 138/75 Pulse Oximetry 98 97 Oxygen Delivery Method Room Air Room Air MDM - Abdominal Pain Lab Data 10/03/24 10:36 10/03/24 10:36 Labs: Lab Results 10/03/24 Range/Units 10:36 WBC 6.5 (4.5-11.0) X10^3/uL RBC 5.31 (4.5-5.9) X10^6/uL Hgb 16.7 (13.5-17.5) g/dL Hct 48.3 (41-53) % MCV 90.9 (80-100) fL MCH 31.4 (26-34) PG MCHC 34.5 (30-36) % RDW 13.2 (11.6-14.8) % Plt Count 212 (150-400) X10^3/uL Neut % (Auto) 64.5 (50-75) % Lymph % (Auto) 24.3 L (25-40) % [place] % (Auto) 8.1 (3-14) % Eos % (Auto) 2.0 (2-4) % Baso % (Auto) 1.1 (0-2) % Neut # (Auto) 4200 (2592-2907) /uL Lymph # (Auto) 1600 (1462-6777) /uL [place] # (Auto) 500 (0-900) /uL Eos # (Auto) 100 (0-450) /uL Baso # (Auto) 100 (0-100) /uL Sodium 139 (137-145) mmol/L Potassium 4.0 (3.4-5.1) mmol/L Chloride 104 (98-107) mmol/L Carbon Dioxide 29 (22-32) mmol/L BUN 10 (9-20) mg/dL Creatinine 0.98 (0.66-1.25) mg/dL Estimated GFR > 60 (>60) mL/min BUN/Creatinine Ratio 10.2 (6-22) Glucose 122 H (70-100) mg/dL Calcium 9.4 (8.4-10.2) mg/dL Total Bilirubin 1.3 (0.2-1.3) mg/dL AST 41 (17-59) IU/L ALT 52 H (<50) IU/L Alkaline Phosphatase 56 (38-126) U/L Total Protein 7.4 (6.3-8.2) g/dL Albumin 4.7 (3.5-5.0) g/dL Globulin 2.7 (1.7-4.1) g/dL Albumin/Globulin Ratio 1.7 (1.0-2.8) Lipase 54 (23-300) U/L Point of care testing: Urine Dip Bedside Urine Glucose Negative Bedside Urine Bilirubin - Negative Bedside Urine Ketone - Negative Urine Specific [place] 1.010 Bedside Urine Occult Blood - Negative Bedside Urine pH 8.5 Bedside Urine Protein - Negative Bedside Urine Urobilinogen - Negative Bedside Urine Nitrite - Negative Bedside Urine Leukocytes - Negative Esterase ECG Data Attestation: I personally reviewed and interpreted this ECG as follows: Prior ECG tracings: available for review Interpretation: Normal sinus rhythm rate 70 UT 80 QRS 90 QTC [address] changes similar to previous EKGs MDM Narrative Medical decision making narrative: Patient is a 54-year-old male with history of diverticulitis presenting today with ongoing left lower quadrant pain. This is similar to all previous episodes of his diverticulitis. He recently had a colonoscopy. Blood work has been reviewed he has no leukocytosis electrolytes are within normal limits. He has no hematochezia. On exam he was tender in the left lower quadrant with out pain out of proportion. Low suspicion for mesenteric ischemia. EKGs has been reviewed and he has in a normal sinus rhythm. At this time discussed with patient about treatment without a CT versus CT. At this time he is comfortable with just getting antibiotics and holding off on a CT scan which I feel is reasonable. He does not want to take a for fluoroquinolone at this time he was pretty severe plantar fasciitis right now in his having already some tendon pain. He does have an allergy to penicillin he says he had a rash as a child but no anaphylaxis. Would take cephalosporin and Flagyl. We also talked about trying Augmentin. At this time he overall appears well nontoxic and stable Discharge Plan Departure Patient Disposition: Home Clinical Impression: Diverticulitis Instructions: DI for Diverticulitis Activity Restrictions/Additional Instructions: *You have been diagnosed with diverticulitis *What to do: At this time we will try antibiotics in 2-3 days you should start to notice some improvement. *Continue to take medications as directed Cefdinir 300 mg twice a day for 10 Flagyl 500 mg 3 times a day for 10 days Tylenol Motrin as needed for pain *Follow up with your primary care provider in 2-3 days or call [phone] *Return to ER if you should have increasing pain fever bloody stools persistent vomiting or any new, worsening or concerning symptoms Prescriptions: New metronidazole 500 mg tablet 500 mg PO Q8H 10 Days Qty: 30 0RF cefdinir 300 mg capsule 300 mg PO Q12H Qty: 20 0RF No Action hydrocortisone [Anusol-HC] 2.5 % cream with perineal applicator 1 applic UT QD-BID PRN (Reason: pain/itching) Qty: 30 5RF irbesartan-hydrochlorothiazide 300-12.5 mg tablet See Rx Instructions .ROUTE .COMPLEX Qty: 90 3RF Dose Instruction: TAKE 1 TABLET BY MOUTH DAILY Rx Instructions: TAKE 1 TABLET BY MOUTH DAILY semaglutide 1 mg/mL See Rx Instructions SUBCUT .weekly Qty: 6 5RF Rx Instructions: 0.25 mg subcut weekly x 4 weeks, then 0.5 mg subcut weekly (DME) Subcutaneous Supplies Kit See Rx Instructions .ROUTE .MEDSUPPLY Qty: 12 3RF Rx Instructions: As directed with semaglutide tamsulosin 0.4 mg capsule See Rx Instructions .ROUTE .COMPLEX Qty: 90 3RF Dose Instruction: TAKE 1 CAPSULE BY MOUTH AT BEDTIME Rx Instructions: TAKE 1 CAPSULE BY MOUTH AT BEDTIME [id number] mg capsule 1 cap PO Q4H PRN (Reason: pain) Qty: 20 5RF magnesium oxide 500 mg tablet 500 mg PO DAILY famotidine [Pepcid] 20 mg tablet 20 mg PO BID Qty: 60 11RF cholecalciferol (vitamin D3) 5,000 unit capsule 5,000 unit PO DAILY metoprolol succinate 25 mg tablet extended release 24 hr 25 mg PO DAILY sumatriptan succinate [Imitrex] 50 mg tablet See Rx Instructions PO .COMPLEX Qty: 10 11RF Rx Instructions: take 1 tab at onset of headache; if no relief may repeat 1 tab after at least 2 hrs; max = 4 tabs/24 hr PO sumatriptan succinate 50 mg tablet PO PRN PRN (Reason: head ache) Referrals: Kylee Davies DO [Primary Care Provider] - Stand Alone Forms: Patient Portal/API/Survey
[2024-10-03] MEDS: CEFDINIR 300 MG CAPSULE PO (12:06)
[2024-10-03] MEDS: metroNIDAZOLE 500 MG TABLET PO (12:06)
[2024-10-03 12:25] VITALS: BP 138/75; PULSE 80; O2SAT 97
== END 2024-10-03 12:25 | disposition home or self-care (01) ==
PROVIDERS: Emergency Provider Emergency Medicine; PCP Family Medicine
DX: K57.92 Diverticulitis of intestine, part unspecified, without perforation or abscess without bleeding (principal); I10 Essential (primary) hypertension; E78.5 Hyperlipidemia, unspecified; Z88.0 Allergy status to penicillin; I48.91 Unspecified atrial fibrillation
CPT/HCPCS: 36415; 80053; 81003; 83690; 85025; 93005; 93010; 99283; 99284

== ENCOUNTER → 2025-07-26 09:10 | Outpatient (CLI) | payer OTHER, SELFPAY ==
--- NOTE | 2025-07-26 09:15 | DI.RAD.S_ITS ---
PROCEDURE: XR CHEST 2V INDICATIONS: History pneumonia [id number] x-ray TECHNIQUE: 2 views of the chest were acquired. COMPARISON: None (imaging performed outside [place] and not available for review). FINDINGS: Surgical changes and devices: None. Lungs and pleura: There is linear and patchy opacity in the right mid lung zone. No pleural effusions or pneumothorax. Mediastinum: Mediastinal contours are normal. Heart size is normal. Bones and chest wall: No suspicious bony abnormalities. Soft tissues appear unremarkable. IMPRESSION: Right mid lung zone linear and patchy opacity, which may represent pneumonia given provided clinical history. No priors are available for comparison. Recommend continued plain film surveillance. Approved by: nIdu Godinez M.D.,Ph.D. on 07/26/2025 at 11:23
== END ==
PROVIDERS: PCP Family Medicine; Referring Provider Nurse Practitioner Family; Visit Provider Nurse Practitioner Family
DX: R05.9 Cough, unspecified (principal)
CPT/HCPCS: 71046

== ENCOUNTER 2025-07-30 09:41 | Emergency (ER) | payer OTHER, SELFPAY ==
[2025-07-30] VITALS (8 sets, daily range): BP systolic 140–152; BP diastolic 78–82; PULSE 65–92; RESP 16–24; TEMP 36.9–37; O2SAT 91–94; BMI 35.8
--- NOTE | 2025-07-30 09:57 | DI.RAD.S_ITS ---
PROCEDURE: XR CHEST 1V INDICATIONS: Shortness of breath TECHNIQUE: One view of the chest was acquired. COMPARISON: [facility], CR, XR CHEST 2V, 07/26/2025, 9:24. FINDINGS: Surgical changes and devices: None. Lungs and pleura: Lungs are clear. No pleural effusions or pneumothorax. Mediastinum: Mediastinal contours appear normal. Heart size is normal. Bones and chest wall: No suspicious bony lesions. Overlying soft tissues appear unremarkable. IMPRESSION: No acute pulmonary process. Dictated by: Minna Reyes M.D. on 07/30/2025 at 10:48 Approved by: Minna Reyes M.D. on 07/30/2025 at 10:48
--- NOTE | 2025-07-30 09:57 | EKG_ITS ---
[facility] [address] [place] [address] Test Date: 2025-07-30 Pat Name: John Sparrow Department: Room: Gender: Male Transcripter: bruce : 1970 Requested By: Order Number: [id number] Reading MD: Pramod Fraga MD Measurements Intervals [place] Rate: 74 P: 52 TN: 176 QRS: 2 QRSD: 94 T: 33 QT: 394 QTc: 437 Interpretive Statements Normal sinus rhythm Electronically Signed On 07-30-2025 10:23:24 PST by Pramod Fraga MD
--- NOTE | 2025-07-30 09:58 | ED_ITS ---
HPI - SOB/Dyspnea General Chief Complaint: Shortness of Breath/Dyspnea Stated Complaint: sob w/ pneumonia worsening today Time Seen by Provider: 07/30/25 09:48 Source: patient, RN notes reviewed and old records reviewed Mode of arrival: Ambulatory Limitations: no limitations History of Present Illness HPI Narrative: 55-year-old male history of atrial fibrillation with prior ablation, hypertension, dyslipidemia, GERD who presents with complaint of persistent pneumonia. Patient was in [place] diagnosed on 07/21/2025 with pneumonia was treated with Cefoprin CV 625. Patient states he had fevers the 1st several days, cough and shortness of breath. States that he is improving flew back recently. He has not had any additional fevers but has had a persistent cough, he has continued to feel little bit short of breath in his had tightness which he states got better but did have today. He denies any hemoptysis he states there has been a small amount of productive sputum. Patient states no nausea or vomiting. No diarrhea or constipation, no urinary symptoms. No new swelling in his extremities no warmth or erythema of his extremities. Patient has a history of atrial fibrillation he is not anticoagulated does not take any aspirin or thinners, takes hydrochlorothiazide/irbesartan, metoprolol succinate, tamsulosin, famotidine and magnesium oxide. States only prior surgeries or a cardiac ablation. Reports allergy to penicillin patient states he develops a rash. No tobacco, occasional alcohol, no recreational drugs. Patient is accompanied by his . States he had a CT in [place] because he thought he had diverticulitis was found to have a right lower lobe pneumonia that imaging was treated with antibiotics. Related Data Home Medications ?Medication ?Instructions ?Recorded ?Confirmed cholecalciferol (vitamin D3) 125 5,000 unit PO DAILY 0 02/03/18 07/26/25 mcg (5,000 unit) capsule magnesium oxide 500 mg PO DAILY AFIB 3 07/26/25 ascorbic acid (vitamin C) 1,000 mg 1 g PO DAILY 07/26/25 capsule tadalafil 10 mg tablet mg PO DAILY PRN 11/09/2404/12 cefdinir 300 mg capsule 300 mg PO BID PRN diverticul itis 02/10/25 07/26/25 Previous Rx's ?Medication ?Instructions ?Recorded hydrocortisone 2.5 % topical cream 1 applic OK QD-BID PRN 05/07/23 with perineal applicator pain/itching #30 grams (Anusol-HC) Subcutaneous Supplies Kit #12 ea 12/19/23 butalbital 50 mg-acetaminophen 325 1 cap PO Q4H PRN pa in #20 caps 11/09/24 mg-caffeine 40 mg-codeine 30 mg cap sumatriptan succinate 50 mg tablet See Rx Instructions PO .COMPLEX 11/09/24 (Imitrex) #10 tabs irbesartan 300 See Rx Instructions .Route 0 12/09/24 mg-hydrochlorothiazide 12.5 mg .COMPLEX #90 tabs tablet tamsulosin 0.4 mg capsule See Rx Instructions .Route 0 01/13/25 .COMPLEX #90 caps tirzepatide 10 mg/0.5 mL See Rx Instructions .Route 0 02/25/25 subcutaneous pen injector .COMPLEX #10 mL famotidine 20 mg tablet 20 mg PO BID #180 tabs 05/25 metoprolol succinate 25 mg 25 mg PO DAILY BP and afib #100 06/15/25 tablet,extended release 24 hr tabs metoprolol tartrate 25 mg tablet 25 mg PO BID PRN for s/s of atrial 06/15/25 fibrillation w/rapid heart rate #180 tabs benzonatate 100 mg capsule 100 mg PO TID PRN cough #10 caps 07/30/25 levofloxacin 750 mg tablet 750 mg PO DAILY 7 days #7 t abs 07/30/25 Allergies Allergy/AdvReac Type Severity Reaction Status Date / Time azithromycin (From Zithromax) Allergy Intermediate Rash Verified 07/30/25 09:49 doxycycline Allergy Intermediate Rash Verified 07/30/25 09:49 Penicillins Allergy Intermediate Rash Verified 07/30/25 09:49 Review of Systems Review of Systems ROS Unobtainable: All systems reviewed & are unremarkable except as noted in HPI and below Patient History Medical History Obesity (BMI 35.0-39.9 without comorbidity) FRIDA on CPAP Hyperlipidemia Migraine Atrial fibrillation SVT (supraventricular tachycardia) Essential hypertension Surgical History Status post ablation of atrial fibrillation (~07/2021) S/P wisdom tooth extraction Family History Father Diabetes mellitus Mother Diabetes mellitus Social History marital status: household members: spouse occupational status: employed ([employer] for [employer]) alcohol intake: current substance use type: does not use alcohol intake frequency: a few times a month Exam Narrative Exam Narrative: GENERAL: Alert and oriented x three, male in mild distress HEENT: Head normocephalic, atraumatic, EOMI, pupils reactive, face symmetric, moist mucous membranes NECK: Supple, full range of motion CARDIOVASCULAR: Regular rate and rhythm without murmurs, rubs or gallops. No JVD. No edema bilateral lower extremities. RESPIRATORY: Breath sounds equal bilaterally, no wheezes rales or rhonchi. No tachypnea or accessory muscle use. ABDOMEN: Soft, nontender. Normoactive bowel sounds all 4 quadrants. No guarding or rebound, rigidity, no mass : No CVA tenderness EXTREMITIES: Normal range of motion, no clubbing or edema. Neurovascularly intact NEUROLOGICAL: Cranial nerves II through XII grossly intact. Moving all extremities SKIN: Warm, dry, no petechiae, no rashes or lesions. Initial Vital Signs Initial Vital Signs: Vital Signs Temperature 98.4 F 07/30/25 09:49 Pulse Rate 81 07/30/25 09:49 Respiratory Rate 18 07/30/25 09:49 Blood Pressure 152/82 H 07/30/25 09:49 Pulse Oximetry 94 07/30/25 09:49 Oxygen Delivery Method Room Air 07/30/25 09:49 Course Orders Ordered: ED Orders 07/30/25 09:53 Complete Blood Count AUTO DIFF Stat Comprehensive Metabolic Panel Stat Lactate (Lactic Acid) Stat NT-proBNP (BNP-Adult 18+) Stat Prothrombin Time INR Stat Troponin I Stat 07/30/25 09:57 XR chest 1V Stat EKG-12 Lead Stat RT Consult Eval and Treat STAT 07/30/25 10:02 CT angio chest PE protocol Stat 07/30/25 10:45 Covid-19 + FLU A/B + RSV - PCR Stat Discontinued Medications Levofloxacin (Levofloxacin 250 Mg Tablet) 750 mg PO NOW ONE Stop: 07/30/25 12:11 Last Admin: 07/30/25 12:32 Dose: 750 mg Documented By: CB Vital Signs Vital signs: Vital Signs - 8 hr 07/30/25 09:49 07/30/25 09:50 07/30/25 10:00 Temperature 98.4 F Pulse Rate 81 81 92 H Respiratory Rate 18 19 22 Blood Pressure 152/82 H Pulse Oximetry 94 94 Oxygen Delivery Method Room Air 07/30/25 10:06 07/30/25 10:06 07/30/25 10:48 Temperature Pulse Rate 75 87 Respiratory Rate 20 16 Blood Pressure 140/78 Pulse Oximetry 94 94 Oxygen Delivery Method 07/30/25 11:00 07/30/25 11:30 07/30/25 12:00 Temperature 98.6 F Pulse Rate 72 76 65 Respiratory Rate 22 21 24 Blood Pressure 140/78 Pulse Oximetry 91 92 94 Oxygen Delivery Method MDM - SOB/Dyspnea Lab Data 07/30/25 09:53 07/30/25 09:53 Labs: Lab Results 07/30/25 07/30/25 Range/Units 09:53 10:45 WBC 7.3 (4.5-11.0) X10^3/uL RBC 4.90 (4.5-5.9) X10^6/uL Hgb 15.2 (13.5-17.5) g/dL Hct 43.4 (41-53) % MCV 88.6 (80-100) fL MCH 31.1 (26-34) PG MCHC 35.1 (30-36) % RDW 13.1 (11.6-14.8) % Plt Count 248 (150-400) X10^3/uL Neut % (Auto) 75.2 H (50-75) % Lymph % (Auto) 12.5 L (25-40) % Wal[place] % (Auto) 7.8 (3-14) % Eos % (Auto) 3.8 (2-4) % Baso % (Auto) 0.7 (0-2) % Neut # (Auto) 5500 (3933-5417) /uL Lymph # (Auto) 900 L (8836-9852) /uL Waldo # (Auto) 600 (0-900) /uL Eos # (Auto) 300 (0-450) /uL Baso # (Auto) 100 (0-100) /uL PT 11.6 (9.4-12.5) SECONDS INR 1.0 (0.9-1.3) Sodium 140 (137-145) mmol/L Potassium 3.7 (3.4-5.1) mmol/L Chloride 107 (98-107) mmol/L Carbon Dioxide 24 (22-32) mmol/L BUN 11 (9-20) mg/dL Creatinine 0.78 (0.66-1.25) mg/dL Estimated GFR > 60 (>60) mL/min BUN/Creatinine Ratio 14.1 (6-22) Glucose 193 H (70-99) mg/dL Lactate 1.5 (0.7-2.1) mmol/L Calcium 9.0 (8.4-10.2) mg/dL Total Bilirubin 0.8 (0.2-1.3) mg/dL AST 33 (17-59) IU/L ALT 39 (<50) IU/L Alkaline Phosphatase 78 (38-126) U/L Troponin I < 0.012 (0.01-0.034) ng/mL NT-Pro-B Natriuret Pep < 20 (<125) pg/mL Total Protein 6.8 (6.3-8.2) g/dL Albumin 4.1 (3.5-5.0) g/dL Globulin 2.7 (1.7-4.1) g/dL Albumin/Globulin Ratio 1.5 (1.0-2.8) SARS-CoV-2 (PCR) Negative (Negative) Influenza A (RT-PCR) Flu a negative (NEGATIVE) Influenza B (RT-PCR) Flu b negative (NEGATIVE) RSV (PCR) Negative (Negative) [facility] Narrative Medical decision making narrative: Labs, labs show white count of 7.3 hemoglobin 15.2 platelets of 248, INR is 1, electrolytes are appropriate BUN and creatinine is appropriate glucose is 193 lactate is 1.5 LFTs are normal troponins less than 0.012 with a BNP of less than 20. EKG, sinus rhythm rate of 74 OK 176 QRS of 94 QTC of 437, no acute ST-elevation or depression. Chest x-ray, no acute pulmonary process. CTA chest shows no pulmonary embolism, multiple bilateral cholesterol is pulmonary nodules is most suggestive of infectious or inflammatory consider potential fungal or mycobacterial etiology. COVID/influenza/RSV 55-year-old male with complaint of recent pneumonia treated with oral antibiotics feels he has been worsening but describes persistent cough some increased shortness of breath and chest tightness. Patient notes at home he has had some low O2 sats down to 89 after a large coughing fit today but running 92- 94%. Patient has high-risk for pulmonary embolism. Workup white count is appropriate lactate is normal troponin BNP are negative, patient does not have a PE on workup but does show changes consistent with pneumonia. Patient had ambulatory pulse ox in the department. Patient was on Cefoprim CV 625 he has combination of cefuroxime and clavulanic acid. Discussed with the patient has not allergy to azithromycin where he gets hives. He has tolerated cephalosporins in the past. Reports an allergy to doxycycline. He has had ciprofloxacin note he got plantar fasciitis when he has had it for diverticulitis but has not had any other tendon issues after discussion we will go ahead and cover him with Levaquin but discussed if he has not any tendon issues he should stop it. Ambulatory pulse ox is 94% here in the department. Discharge Plan Departure Patient Disposition: Home Clinical Impression: Pneumonia Instructions: DI for Pneumonia -- Adult Activity Restrictions/Additional Instructions: Your imaging today does show changes consistent with infection you have numerous micro nodules bilaterally right and left with some consolidation present on the right on your imaging. You have been prescribed a new antibiotic called Levaquin or levofloxacin. This medication can sometimes cause tendon issues if you start having tendon pain. This medication and talk with your physician about changing your antibiotics. Prescription sent to [facility] in [place]. Please return if you develop fevers, new or worsening chest pain, increasing shortness of breath, any cough hemoptysis or coughing up blood, lightheadedness or passing out, new swelling of your extremities or other new or concerning changes. Prescriptions: New levofloxacin 750 mg tablet 750 mg PO DAILY 7 Days Qty: 7 0RF benzonatate 100 mg capsule 100 mg PO TID PRN (Reason: cough) Qty: 10 0RF No Action hydrocortisone [Anusol-HC] 2.5 % cream with perineal applicator 1 applic OK QD-BID PRN (Reason: pain/itching) Qty: 30 5RF (DME) Subcutaneous Supplies Kit See Rx Instructions .ROUTE .MEDSUPPLY Qty: 12 3RF Rx Instructions: As directed with semaglutide irbesartan-hydrochlorothiazide 300-12.5 mg tablet See Rx Instructions .ROUTE .COMPLEX Qty: 90 3RF Dose Instruction: TAKE 1 TABLET BY MOUTH DAILY Rx Instructions: TAKE 1 TABLET BY MOUTH DAILY tamsulosin 0.4 mg capsule See Rx Instructions .ROUTE .COMPLEX Qty: 90 3RF Dose Instruction: TAKE 1 CAPSULE BY MOUTH AT BEDTIME Rx Instructions: TAKE 1 CAPSULE BY MOUTH AT BEDTIME tirzepatide 10 mg/0.5 mL pen injector See Rx Instructions .Route .COMPLEX Qty: 10 1RF Rx Instructions: (Titration)10mg w/ cyanocabalamin 0.5mg/ml ;Week 1-4 inject 2.5mg SQ weekly; Week 5-8 inject 5mg SQ weekly; Week 9-12 inject 7.5mg SQ weekly; Problem/Diagnosis: 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 & E66.9 Obesity famotidine 20 mg tablet 20 mg PO BID Qty: 180 3RF metoprolol tartrate 25 mg tablet 25 mg PO BID PRN (Reason: for s/s of atrial fibrillation w/rapid heart rate) Qty: 180 0RF magnesium oxide 500 mg tablet 500 mg PO DAILY tadalafil 10 mg tablet PO DAILY PRN Patient Comments: [NO ORIGINAL SIG] metoprolol succinate 25 mg tablet extended release 24 hr 25 mg PO DAILY Qty: 100 3RF cholecalciferol (vitamin D3) 5,000 unit capsule 5,000 unit PO DAILY ascorbic acid (vitamin C) 1,000 mg capsule 1 g PO DAILY [id number] mg capsule 1 cap PO Q4H PRN (Reason: pain) Qty: 20 5RF sumatriptan succinate [Imitrex] 50 mg tablet See Rx Instructions PO .COMPLEX Qty: 10 11RF Rx Instructions: take 1 tab at onset of headache; if no relief may repeat 1 tab after at least 2 hrs; max = 4 tabs/24 hr PO cefdinir 300 mg capsule 300 mg PO BID PRN (Reason: diverticulitis) Referrals: Kylee Davies DO [Primary Care Provider, Family Practice] Stand Alone Forms: Patient Portal/API
--- NOTE | 2025-07-30 10:02 | DI.CT.S_ITS ---
PROCEDURE: CT ANGIO CHEST PE PROTOCOL INDICATIONS: cough, sob, chest tightness, recent pna, flew back [place] TECHNIQUE: After the administration of intravenous contrast, 2 mm thick sections acquired from the pulmonary apices to the posterior costophrenic angles. 3-dimensional maximum intensity projection (MIP) coronal and sagittal reformats were then acquired through the thorax. For radiation dose reduction, the following was used: automated exposure control, adjustment of mA and/or kV according to patient size. COMPARISON: [facility], CR, XR CHEST 2V, 07/26/2025, 9:24. FINDINGS: Image quality: Diagnostic. Pulmonary arteries: Pulmonary arteries are normal in size, and demonstrate no intraluminal filling defects to suggest central pulmonary embolism. Lower Neck: No enlarged lymph nodes. Thyroid: No thyroid nodules which require sonographic follow up, per consensus guidelines. Axillae: No enlarged lymph nodes. Chest Wall: Unremarkable. Bones: Unremarkable. Lungs and Pleura: No pneumothorax or pleural effusions. Appearance of numerous micro nodules within the bases bilaterally right greater than left. Small superimposed consolidative opacity is present on the right. Heart: Heart size is normal. No pericardial effusion. Thoracic Vessels: No aortic aneurysm. Mediastinum and [place]: No enlarged lymph nodes. Esophagus: No wall thickening. Mild hiatal hernia. Upper Abdomen: Visualized upper abdomen solid organs and bowel loops appear normal. IMPRESSION: No pulmonary embolus. Multiple bilateral clusters of pulmonary nodules as above most suggestive of infection or inflammation. Recommend consideration of potential fungal or mycobacterial etiology. Dictated by: Minna Reyes M.D. on 07/30/2025 at 10:32 Approved by: Minna Reyes M.D. on 07/30/2025 at 10:34
[2025-07-30 10:06] LABS: Add Manual Diff / Slide Review NO; Hematocrit 43.4 % (41-53); Hemoglobin 15.2 g/dL (13.5-17.5); Lymphocytes Absolute Auto 900 /uL (1100-4500); Mean Corpuscular HGB Conc 35.1 % (30-36); Mean Corpuscular Hemoglobin 31.1 PG (26-34); Mean Corpuscular Volume 88.6 fL (80-100); Platelet Count 248 X10^3/uL (150-400)
[2025-07-30 10:13] LABS: INR 1.0 (0.9-1.3); Prothrombin Time 11.6 SECONDS (9.4-12.5)
[2025-07-30 10:22] LABS: Lactate (Lactic Acid) 1.5 mmol/L (0.7-2.1)
[2025-07-30 10:23] LABS: Alanine Aminotransferase 39 IU/L (<50); Albumin 4.1 g/dL (3.5-5.0); Albumin Globulin Ratio 1.5 (1.0-2.8); Alkaline Phosphatase 78 U/L (38-126); Blood Urea Nitrogen 11 mg/dL (9-20); Calcium 9.0 mg/dL (8.4-10.2); Carbon Dioxide 24 mmol/L (22-32); Chloride 107 mmol/L (98-107); Estimated Glomerular Filt Rate > 60 mL/min (>60); Globulin 2.7 g/dL (1.7-4.1); Glucose 193 mg/dL (70-99); HEMOLYSIS < 15 (0-50); Potassium 3.7 mmol/L (3.4-5.1); Sodium 140 mmol/L (137-145); Total Protein 6.8 g/dL (6.3-8.2)
[2025-07-30 10:37] LABS: NT-proBNP (BNP-Adult 18+) < 20 pg/mL (<125); Troponin I < 0.012 ng/mL (0.01-0.034)
[2025-07-30 11:33] LABS: Influenza A - CEPHEID Flu A NEGATIVE (NEGATIVE); Influenza B - CEPHEID Flu B NEGATIVE (NEGATIVE)
[2025-07-30 11:35] LABS: COVID-19 CEPHEID 4-PLEX PCR Negative (Negative)
== END 2025-07-30 12:35 | disposition home or self-care (01) ==
PROVIDERS: Emergency Provider Emergency Medicine; PCP Family Medicine
DX: J18.9 Pneumonia, unspecified organism (principal); I10 Essential (primary) hypertension; R07.89 Other chest pain
CPT/HCPCS: 36415; 71045; 71275; 80053; 83605; 83880; 84484; 85025; 85610; 87637; 93005; 99284; Q9967

== ENCOUNTER → 2025-08-11 09:01 | Outpatient (CLI) | payer OTHER, SELFPAY ==
--- NOTE | 2025-08-11 09:02 | DI.RAD.S_ITS ---
PROCEDURE: XR CHEST 2V INDICATIONS: Follow-up chest x-ray TECHNIQUE: 2 views of the chest were acquired. COMPARISON: [facility], CR, XR CHEST 1V, 07/30/2025, 10:15. [facility], CR, XR CHEST 2V, 07/26/2025, 9:24. FINDINGS: Surgical changes and devices: None. Lungs and pleura: Lungs are clear. No pleural effusions or pneumothorax. Mediastinum: Mediastinal contours are normal. Heart size is normal. Bones and chest wall: No suspicious bony abnormalities. Soft tissues appear unremarkable. IMPRESSION: No acute cardiopulmonary abnormality is seen. Dictated by: Kennedy Mayo M.D. on 08/11/2025 at 15:50 Approved by: Kennedy Mayo M.D. on 08/11/2025 at 15:50
== END ==
PROVIDERS: PCP Family Medicine; Referring Provider Nurse Practitioner Family; Visit Provider Nurse Practitioner Family
DX: J18.9 Pneumonia, unspecified organism (principal)
CPT/HCPCS: 71046